=== PATIENT | female | born 1960 | race Caucasian/White ===

== ENCOUNTER 2017-07-27 22:28 | Observation (INO) | payer BC ==
[~2017-07-27] VITALS: Ht 152.4 cm; Wt 80.3 kg
--- NOTE | 2017-07-27 22:29 | NUR ---
PT RADHA ALS. TAKEN TO BED 11
[2017-07-27 22:35] VITALS: BP 185/77
--- NOTE | 2017-07-27 22:35 | NUR ---
56 Y/O F BIBA FROM HOME W/C/O HIGH BS,AND ALOC X 1 HR AGO. PER EMS BS 450 ON SCENE, NSS 150 ML BOLUS GIVEN BY EMS. HX. DM, ESRD ON HD, HTN.PT ON DIRECTOR OF SPECIAL EVENTS, ER MD AT BEDSIDE.
--- NOTE | 2017-07-27 23:14 | NUR ---
TRAV BARROS MADE AWARE OF PT'S BP READING OF 202/90.
[2017-07-27 23:24] LABS: HEMATOCRIT 34.4 % (36-48); HEMOGLOBIN 11.3 g/dL (12.0-16.0); RED BLOOD CELL COUNT(AUTO) 3.61 MIL/uL (4.20-5.40); WHITE BLOOD COUNT (AUTO) 11.2 K/uL (4.8-10.8)
[2017-07-27 23:25] LABS: LYMPHOCYTES % (AUTO) 12.4 % (20.5-51.1); MEAN CORPUSCULAR HEMOGLOBIN 31 pg (27-31); MEAN CORPUSCULAR HGB CONC 33 g/dL (33-37); MEAN CORPUSCULAR VOLUME 96 fL (80-94); NEUTROPHILS % (AUTO) 80.5 % (42.2-75.2); PLATELET COUNT (AUTO) 222 K/uL (140-450); RED CELL DISTRIBUTION WIDTH 15.1 % (11.6-13.7)
[2017-07-27 23:26] LABS: BASOPHILS # (AUTO) 0.1 K/uL (0.00-0.22); BASOPHILS % (AUTO) 1.2 % (0.0-2.0); EOSINOPHILS # (AUTO) 0.1 K/uL (0-0.4); EOSINOPHILS % (AUTO) 0.6 % (0.0-4.0); LYMPHOCYTES # (AUTO) 1.4 K/uL (2.5-16.5); MONOCYTES # (AUTO) 0.6 K/uL (0.8-1.0); MONOCYTES % (AUTO) 5.3 % (1.7-9.3)
[2017-07-27 23:31] LABS: POTASSIUM 4.4 mmol/L (3.5-5.1)
[2017-07-27 23:32] LABS: CARBON DIOXIDE 23.4 mmol/L (21-32)
[2017-07-27 23:37] LABS: TOTAL BILIRUBIN 0.3 mg/dL (0.0-1.0)
--- NOTE | 2017-07-27 23:37 | NUR ---
URINE COLLECTED AND SENT TO lab
[2017-07-27 23:47] LABS: ALBUMIN 3.7 g/dL (3.4-5.0)
[2017-07-27 23:52] LABS: CREATININE 5.4 mg/dL (0.6-1.3)
[2017-07-27] MEDS ORDERED: INSULIN REGULAR, HUMAN 100 UNIT/ML VIAL SUBQ ONE (23:55)
--- NOTE | 2017-07-28 00:08 | NUR ---
PT RESTING IN BED, FAMILY AT BEDSIDE. PT DENIES ANY CHEST PAIN OR SOB. WILL CONT TO MONITOR VS.
[2017-07-28 00:34] LABS: APPEARANCE,URINE CLOUDY (CLEAR)
[2017-07-28 00:35] LABS: COLOR,URINE YELLOW (YELLOW)
[2017-07-28 00:36] LABS: UGLUCOSE 2+ (NEGATIVE)
[2017-07-28 00:37] LABS: BILIRUBIN,URINE NEGATIVE (NEGATIVE); BLOOD, URINE TRACE (NEGATIVE); LEUKOCYTE ESTERASE ,URINE NEGATIVE (NEGATIVE); NITRITE, URINE NEGATIVE (NEGATIVE)
[2017-07-28 00:38] LABS: RBC,URINE TOO NUMEROUS TO COUN /HPF (0-5); WBC,URINE TOO MANY TO COUNT /HPF (0-5)
[2017-07-28] MEDS ORDERED: cloNIDine 0.1 MG TAB PO ONE ×2 (00:45→02:25)
[2017-07-28] MEDS ORDERED: LEVOFLOXACIN 500 MG/D5W PREMIX 100 ML IV ONE (01:05)
--- NOTE | 2017-07-28 01:26 | NUR ---
PT ASLEEP, ON MONITOR, NSR. PT DENIES ANY CHEST PAIN AT THE MOMENT.
[2017-07-28] MEDS ORDERED: DEXTROSE 50% 50 ML SYR IVP PRN (02:30)
[2017-07-28] MEDS ORDERED: ACETAMINOPHEN 325 MG TAB PO PRN (02:30)
[2017-07-28] MEDS ORDERED: ONDANSETRON 4 MG/2 ML VIAL IVP PRN (02:30)
[2017-07-28] MEDS ORDERED: HYDROcodone/APAP 5/325 MG 1 TAB TAB PO PRN (02:30)
--- NOTE | 2017-07-28 02:33 | NUR ---
PT RESTING IN BED, ON PROTECTOR PLATE ATTACHER, BP 199/75, PT DENIES CHEST PAIN. ER MD MADE AWARE.
[2017-07-28] MEDS ORDERED: hydrALAZINE 20 MG/ML VIAL IVP ONE (03:00)
--- NOTE | 2017-07-28 03:21 | NUR ---
CHARGE NURSE DAVID NOTIFIED OF DELAY ON PT'S TRANSFER D/T ELEVATED BP OF 189/68. CHARGE NURSE NOTIFIED OF MEDS GIVEN RECENTLY FOR HIGH BP.
--- NOTE | 2017-07-28 03:45 | NUR ---
Patient will be admitted to care of DR CLIFFORD. Admited to TELEMETRY. Will go to [id number]. Belongings list completed. Report to DEACON CODY AT BEDSIDE.
--- NOTE | 2017-07-28 03:50 | NUR ---
PT ARRIVED FROM ED VIA GURNEY, TRANSFERRED PT TO BED, SUPERVISOR OF RESEARCH PLACED, PT ORIENTED TO UNIT, NO DISTRESS NOTED, IV TO R AC 18 PATENT, PT ON ROOM AIR NO SOB, INITIAL ASSESSMENT DONE, ALL SAFETY PRECAUTION MET, WILL CONTINUE TO MONITOR.
[2017-07-28 04:10] VITALS: BP 180/70
--- NOTE | 2017-07-28 05:10 | NUR ---
PT SLEEPING, NO DISTRESS NOTED, CALL LIGHT WITHIN REACH WILL CONTINUE TO MONITOR.
[2017-07-28] MEDS: BLOOD GLUCOSE MONITORING 1 DEV DEV FS SCH ×4 (06:22→21:39)
[2017-07-28] MEDS: INSULIN LISPRO SLIDING SCALE 100 UNITS/ML VIAL SUBQ PRN ×2 (06:25→21:45)
--- NOTE | 2017-07-28 06:25 | NUR ---
DUE MEDICATION GIVEN, PT TOLERATED WELL, NO DISTRESS NOTED, CALL LIGHT WITHIN REACH, WILL CONTINUE TO MONITOR.
--- NOTE | 2017-07-28 07:31 | NUR ---
ENDORSED PT TO DAY SHIFT NURSE KY RN, PT STABLE, NO DISTRESS NOTED, CALL LIGHT WITHIN REACH.
--- NOTE | 2017-07-28 07:32 | NUR ---
RECEIVED REPORT FROM NAVAL ARCHITECT SPECIALIST NURSE AT BEDSIDE FOR CONTINUITY OF CARE. PATIENT ALERT AND AWAKE. UPDATED BOARD. RESPIRATIONS EVEN AND UNLABORED ON ROOM AIR. PATIENT DENIES PAIN AT THIS TIME. IV ON L AC 18G SL, IV INTACT, ASYMPTOMATIC, AND PATENT. SKIN INTACT. PATIENT CAN VERBALIZE REQUESTS. ALL NEEDS MET AT THIS TIME, SAFETY PRECAUTIONS IN PLACE, BED ON LOWEST SETTING, BED ALARM ON, CALL LIGHT WITHIN REACH. WILL CONTINUE TO MONITOR PATIENT.
[2017-07-28 08:00] VITALS: BP 170/62
[2017-07-28 08:02] LABS: CREATINE KINASE MB 1.9 ng/mL (0-3.6)
--- NOTE | 2017-07-28 09:11 | NUR ---
PATIENT HAS BEEN SCREENED AND CATEGORIZED HIGH NUTRITION RISK. PATIENT WILL BE SEEN WITHIN 1-2 DAYS OF ADMISSION. 07/28/18-07/29/[address]
--- NOTE | 2017-07-28 09:45 | NUR ---
ROCEPHIN IVPB STARTED. PATIENT RESTING IN BED. NO SIGNS OF DISTRESS. SAFETY PRECAUTION IN PLACE, CALL LIGHT WITHIN REACH. WILL CONTINUE TO MONITOR PATIENT.
--- NOTE | 2017-07-28 10:15 | NUR ---
ROCEPHIN IVPB 50ML FINISHED. NO REACTION OR SIGNS OF DISTRESS FROM PATIENT. PATIENT RESTING IN BED. NSAFETY PRECAUTION IN PLACE, CALL LIGHT WITHIN REACH. WILL CONTINUE TO MONITOR PATIENT.
--- NOTE | 2017-07-28 11:05 | NUR ---
PATIENT RESTING IN BED, DAUGHTER ELISEO AT BEDSIDE. SAFETY PRECAUTION IN PLACE, CALL LIGHT WITHIN REACH. WILL CONTINUE TO MONITOR PATIENT.
[2017-07-28 12:00] VITALS: BP 171/68
--- NOTE | 2017-07-28 13:25 | NUR ---
DR. FAULKNER CALLED. UPDATED HIM ABOUT PATIENT'S STATUS. HE STATED HE WILL PUT IN THE ORDER FOR HEMODIALYSIS WHEN HE COMES TO THE FLOOR AND TO CALL TANJA PEREZ THE DIALYSIS NURSE.
--- NOTE | 2017-07-28 13:38 | NUR ---
TANJA PEREZ, ANCHOR TACKER CALLED FOR HEMODIALYSIS FOR PATIENT. PATIENT IN STABLE CONDITION. RESTING. DAUGHTER AT BEDSIDE. NO SIGNS OF DISTRESS NOTED. SAFETY PRECAUTION IN PLACE, CALL LIGHT WITHIN REACH. WILL CONTINUE TO MONITOR PATIENT.
--- NOTE | 2017-07-28 14:42 | NUR ---
Clinical review faxed to [facility] at [phone]
[2017-07-28 16:00] VITALS: BP 183/69
--- NOTE | 2017-07-28 16:05 | NUR ---
DIALYSIS NURSE ON THE FLOOR. WILL BEGIN DIALYSIS. PATIENT SHOWS NO SIGNS OF DISTRESS. SON AT BEDSIDE. PATIENT DENIES PAIN. SAFETY PRECAUTIONS IN PLACE, CALL LIGHT WITHIN REACH. WILL CONTINUE TO MONITOR PATIENT.
[2017-07-28 16:35] LABS: CREATINE KINASE MB 1.9 ng/mL (0-3.6)
[2017-07-28] MEDS ORDERED: LISI-420 PO (16:58)
[2017-07-28] MEDS ORDERED: HYDR100T79 PO (16:58)
[2017-07-28] MEDS ORDERED: FAMO-90 PO (16:58)
[2017-07-28] MEDS ORDERED: AMLO10TA PO (16:58)
[2017-07-28] MEDS ORDERED: GABA100C PO (16:58)
[2017-07-28] MEDS ORDERED: ACET-2619 PO (16:58)
[2017-07-28] MEDS ORDERED: PRED10TA5 PO (16:58)
[2017-07-28] MEDS ORDERED: ACET-2869 PO (16:58)
[2017-07-28] MEDS ORDERED: INSU100S22 SUBQ (16:58)
--- NOTE | 2017-07-28 17:05 | NUR ---
DR. CARDONA CALLED BACK, PATIENT' TROPONIN LEVELS READ TO HIM. HE SAID THAT AFTER HEMODIALYSIS, GIVE PATIENT BP MEDICATIONS ORDERED, IF 2 HOURS AFTER, BP IS STILL GREATER THAN 140, CALL HIM AGAIN. PATIENT CURRENTLY GETTING HEMODIALYSIS, TOLERATING IT WELL. SON AT BEDSIDE. SAFETY PRECAUTIONS IN PLACE, CALL LIGHT WITHIN REACH. WILL CONTINUE TO MONITOR PATIENT.
--- NOTE | 2017-07-28 19:10 | NUR ---
KEENA, SENIOR ADMINISTRATIVE ASSISTANT, FROM THE PATIENT'S INSURANCE CALLED. WANTED TO SEE THE CONDITION OF THE PATIENT AND TRANSFER HER TO A CONTRACTED HOSPITAL. PATIENT JUST FINISHED RECEIVING DIALYSIS, 3L REMOVED. PATIENT'S SON AT BEDSIDE. NO SIGNS OF DISTRESS NOTED. PATIENT DENIES PAIN. SAFETY PRECAUTIONS IN PLACE, CALL LIGHT WITHIN REACH. WILL CONTINUE TO MONITOR PATIENT.
--- NOTE | 2017-07-28 19:15 | NUR ---
DR. CLIFFORD CALLED, STATED THAT PATIENT'S INSURANCE'S BASS FISHER CALLED HIM. HE SAID THAT PATIENT CAN BE DISCHARGED, AND HAVE HER HOME MEDICATIONS CONTINUED.
--- NOTE | 2017-07-28 19:35 | NUR ---
REPORT GIVEN AT BEDSIDE FOR CONTINUITY OF CARE TO FARM CROPS TEACHER NURSE. WILL ENDORSE TRANSFER INFORMATION. PATIENT IN STABLE CONDITION.
--- NOTE | 2017-07-28 19:36 | NUR ---
RECEIVED REPORT FROM DAY NURSE LAILA RN. PT IN STABLE CONDITION, NO S/S OF DISTRESS NOTED. RR EVEN/UNLABORED. PT ON RA. 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 SKIN INTACT, WARM AND DRY TO TOUCH. IV TO R AC 18G PATENT AND INTACT SALINE LOCK. BOWEL SOUNDS PRESENT AND ACTIVE. INITIAL ASSESSMENT COMPLETED, PLAN OF CARE DISCUSSED WITH PT AND FAMILY AT THE BEDSIDE, VERBALIZED UNDERSTANDING. ALL SAFETY PRECAUTIONS MET, CALL LIGHT WITHIN REACH, BOARD UPDATED,WILL CONTINUE TO MONITOR.
--- NOTE | 2017-07-28 19:37 | NUR ---
DAY NURSE [place] RECEIVED CALL FROM DR. CLIFFORD AND STATED THAT DR. CLIFFORD SAID TO TRANSFER PT AND PUT IN ORDERS FOR TRANSFER. I WILL CALL DR. CLIFFORD TO CLARIFY ORDERS.
--- NOTE | 2017-07-28 19:50 | NUR ---
DR. CLIFFORD PAGEMarty. CHARGE NURSE DAVID WORTHY MADE AWARE OF ORDERS FOR PTS TRANSFER, SAID TO WAIT TO TALK TO DR. CLIFFORD
[2017-07-28 20:00] VITALS: BP 189/82
--- NOTE | 2017-07-28 20:05 | NUR ---
DR. CLIFFORD PAGED BACK, HE STATED HE TALKED TO SAMPLE GRINDER FROM INSURANCE FOR PT TRANSFER AND GAVE ME THE NUMBER TO SPEAK WITH HER. WILL PAGE SERVICING MANAGER
--- NOTE | 2017-07-28 20:07 | NUR ---
PAGED THE DIRECTOR COUNSELING BUREAU, SIDDHARTHA, PHONE NUMBER [phone]. SHE STATED, "I POSSIBLY HAVE A BED AVAILABLE AT [facility], I AM WAITING FOR A CALL BACK FROM THE FACILITY AND I WILL CALL BACK WHEN I HEAR FROM THE." GAVE SIDDHARTHA THE UNITS PHONE NUMBER FOR CALL BACK
--- NOTE | 2017-07-28 20:10 | NUR ---
PAGED MARKET RESEARCH SENIOR PROJECT MANAGER MARIAA FROM [place] TO MAKE AWARE OF SITUATION. SHE EXPLAINED TO ME THE PROTOCOL FOR TRANSFERRING PTS AND STATED SHE WILL ALSO GIVE SIDDHARTHA THE MARKET RESEARCH SENIOR PROJECT MANAGER A PHONE CALL.
--- NOTE | 2017-07-28 20:30 | NUR ---
PT B/P ELEVATED 192/82 PULSE IS 69, NO S/S OF DISTRESS NOTED. PT DENIES ANY PAIN. DR. RAMIREZ MADE AWARE
[2017-07-28] MEDS: CARVEDILOL 6.25 MG TAB PO SCH (20:38)
--- NOTE | 2017-07-28 20:45 | NUR ---
DR. RAMIREZ IN TO SEE PT
--- NOTE | 2017-07-28 20:50 | NUR ---
CALLED CT TO ASK FOR CD OF IMAGES THAT DR. CLIFFORD ORDERED. CT STATES THEY DO NOT HAVE ANY ORDERS ON THEIR END BUT IT SHOWS ON EMR
--- NOTE | 2017-07-28 21:00 | NUR ---
DR. RAMIREZ PUT IN NEW ORDERS FOR B/P MEDICATION. WILL CARRY OUT ORDERS AND PAGE PHARMACY TO VERIFY
--- NOTE | 2017-07-28 21:00 | NUR ---
DR. CARDONA STATES HE WANTED NORVAS 10MG TO BE GIVEN A ONE TIME DOSE NOW, WILL GIVE
--- NOTE | 2017-07-28 21:06 | NUR ---
2031 RECEIVED CALL FROM PUMA SUBRAMANIAN NURSE THAT SHE RECEIVED CALL FROM MELINA JEFFERY REGARDING TRANSFER OF PT TO A CONTRACTED FACILITY AND THAT DR CLIFFORD HAS GIVEN ORDER FOR TRANSPORT TO CONTRACTED FACILITY. 2055 CALL PLACED TO [phone] AND SPOKE WITH SIDDHARTHA SUMMERS CM REGARDING PENDING TRANSFER. PER SIDDHARTHA AT THIS TIME A BED HAS NOT BEEN CONFIRMED AT A CONTRACTED FACILITY AND SHE WILL CALL NURSING UNIT WITH INFORMATION WHEN BED BECOMES AVAILABLE. ASKED FOR AUTH# FOR AMBULANCE TRANSPORT AND SHE STATED THAT WHEN A BED IS AVAILABLE SHE WILL SET UP THE TRANSPORT. CALLED NURSING UNIT AND SPOKE WITH PUMA SUBRAMANIAN NURSE AND INFORMED HER THAT WHEN A CONTRACTED HOSPITAL BED IS AVAILABLE SIDDHARTHA WILL CONTACT THE NURSING UNIT WITH THE FACILITY, BED NUMBER, AND PHONE NUMBER TO CALL WITH REPORT AND THAT PER SIDDHARTHA SHE WILL SET UP THE AMBULANCE TRANSPORT.
[2017-07-28] MEDS ORDERED: amLODIPine 5 MG TAB PO SCH (21:10)
[2017-07-28] MEDS ORDERED: cloNIDine 0.1 MG TAB PO PRN (21:10)
--- NOTE | 2017-07-28 21:20 | NUR ---
DR. CARDONA PUT ORDER IN EMAR WILL CALL PHARMACY TO VERIFY MED
--- NOTE | 2017-07-28 21:22 | NUR ---
PAGED PHARMACY TO VERIFY MED STATED THEY WILL VERIFY IT
[2017-07-29] VITALS (8 sets, daily range): BP systolic 122–176; BP diastolic 52–80
--- NOTE | 2017-07-29 00:30 | NUR ---
PAGED CT AGAIN FOR CD BUT DAPHNE STATES SHE STILL DOES NOT SEE ORDERS
--- NOTE | 2017-07-29 01:06 | NUR ---
CHECKED PTS B/P IT IS 179/70 PULSE 62 NO S/S OF DISTRESS PT RESTING COMFORTABLY IN BED. PT DENIES PAIN. CATAPRES GIVEN PRN ORDERED FOR SYSTOLIC OVER 150
--- NOTE | 2017-07-29 01:30 | NUR ---
CD IMAGE FOUND IN NURSING STATION, WAS BROUGHT OVER EARLIER
--- NOTE | 2017-07-29 03:15 | NUR ---
PAGED DR. CARDONA ABOUT PTS B/P 170/60 PULSE 61, NEW ORDERS IN PLACE
--- NOTE | 2017-07-29 03:30 | NUR ---
PT SOAKED BED WITH URINE, ALL BEDDING CHANGED AND PT CLEANED
[2017-07-29] MEDS: hydrALAZINE 20 MG/ML VIAL IVP PRN ×3 (03:32→16:52)
[2017-07-29 05:50] LABS: BASOPHILS # (AUTO) 0.2 K/uL (0.00-0.22); BASOPHILS % (AUTO) 2.1 % (0.0-2.0); EOSINOPHILS # (AUTO) 0.3 K/uL (0-0.4); EOSINOPHILS % (AUTO) 4.2 % (0.0-4.0); HEMATOCRIT 33.9 % (36-48); HEMOGLOBIN 10.8 g/dL (12.0-16.0); LYMPHOCYTES % (AUTO) 26.9 % (20.5-51.1); MEAN CORPUSCULAR HEMOGLOBIN 31 pg (27-31); MEAN CORPUSCULAR HGB CONC 32 g/dL (33-37); MEAN CORPUSCULAR VOLUME 96 fL (80-94); MONOCYTES # (AUTO) 0.7 K/uL (0.8-1.0); MONOCYTES % (AUTO) 9.7 % (1.7-9.3); NEUTROPHILS # (AUTO) 4.1 K/uL (1.8-7.7); NEUTROPHILS % (AUTO) 57.1 % (42.2-75.2); PLATELET COUNT (AUTO) 204 K/uL (140-450); RED BLOOD CELL COUNT(AUTO) 3.53 MIL/uL (4.20-5.40); RED CELL DISTRIBUTION WIDTH 14.9 % (11.6-13.7); WHITE BLOOD COUNT (AUTO) 7.3 K/uL (4.8-10.8)
[2017-07-29 06:28] LABS: ALBUMIN 3.1 g/dL (3.4-5.0); ANION GAP 12.2 (8-16); CARBON DIOXIDE 28.2 mmol/L (21-32); CREATININE 3.7 mg/dL (0.6-1.3); MAGNESIUM 1.6 mg/dL (1.8-2.4); POTASSIUM 3.4 mmol/L (3.5-5.1); TOTAL BILIRUBIN 0.2 mg/dL (0.0-1.0)
[2017-07-29] MEDS: BLOOD GLUCOSE MONITORING 1 DEV DEV FS SCH ×3 (06:30→16:33)
--- NOTE | 2017-07-29 07:30 | NUR ---
GAVE REPORT TO DAY NURSE, PT IN STABLE CONDITION.
[2017-07-29 08:14] LABS: HEPATITIS A ANTIBODY IGM Negative (Negative); HEPATITIS B CORE AB TOTAL Negative (Negative); HEPATITIS B SURFACE ANTIBODY Non Reactive (.); HEPATITIS B SURFACE ANTIGEN Negative (Negative)
[2017-07-29] MEDS ORDERED: amLODIPine 5 MG TAB PO SCH ×2 (09:00)
[2017-07-29] MEDS: CARVEDILOL 6.25 MG TAB PO SCH (09:10)
[2017-07-29] MEDS ORDERED: HUM SUBQ (10:10)
--- NOTE | 2017-07-29 10:29 | NUR ---
NEW IV 20G RIGHT FOREARM SL FOR CT WITH IV CONTRAST, PATIENT LEFT TO PROCEDURE, IN STABLE CONDITION
--- NOTE | 2017-07-29 10:44 | NUR ---
PATIENT'S IV FILTRATED AND WAS DISCONTINUED WITH CANNULA INTACT. IV WITHELD. NEW IV 22G RIGHT WRIST WITH IV ABX INFUSING WELL. ALL NEEDS MET AT THIS TIME.
--- NOTE | 2017-07-29 11:18 | NUR ---
FAXED CONCURRENT REVIEW TO MELINA [phone] PHONE TOMAS [phone]. CALLED TOMAS ABOUT TRANSFER TO CONTRACTED FACILITY. I TOLD HER I HAD AN ORDER TO DISCHARGE PATIENT HOME IF CLEARED BY CARDIOLOGY.
[2017-07-29] MEDS ORDERED: CARV3.12 PO (11:44)
--- NOTE | 2017-07-29 11:45 | NUR ---
DR FAULKNER ORDERED TO GIVE PATIENT COREG 3.125 PO BID A NEW ORDER FOR DISCHARGED. WILL PLACE ORDERS.
[2017-07-29] MEDS ORDERED: LISINOPRIL 10 MG TAB PO SCH (12:00)
--- NOTE | 2017-07-29 15:13 | NUR ---
07/29/2017 RD INITIAL ASSESSMENT COMPLETED PLEASE REFER TO NUTRITION ASSESSMENT UNDER CARE ACTIVITY FOR ESTIMATED NUTRITIONAL NEEDS. CONTINUE CURRENT DIET ORDERED PT IS CONSUMING AN ESTIMATED 938 KCALS AND 34 GM PRO TO MEET 58% ESTIMATED ENERGY AND 52% ESTIMATED PROTEIN NEEDS PER DAYINADEQUATE, ENCOURAGED INCREASED INTAKE RD TO FOLLOW-UP IN 3-5 DAYS PATIENT IS MODERATE RISK. LETTY HAGER, RD
--- NOTE | 2017-07-29 16:12 | NUR ---
RECEIVED CALL FROM DR. CLIFFORD TO PLACE IN ORDERS FOR HOME HEALTH; HOME SAFETY AND PHYSICAL THERAPY.
--- NOTE | 2017-07-29 16:28 | NUR ---
RECEIVED AN ORDER FOR HOME HEALTH FOR SAFETY EVAL AND P.T. I CALLED TOMAS FROM [facility] AND SHE SAID SHE ALREADY SET UP THE HOME HEALTH WITH [facility]. PHONE [phone]. I ALSO INFORMED HER THAT DR. Breanna CARDONA WAS COMING TO SEE PATIENT PRIOR TO DISCHARGE.
[2017-07-29] MEDS: INSULIN LISPRO SLIDING SCALE 100 UNITS/ML VIAL SUBQ PRN (16:43)
--- NOTE | 2017-07-29 16:57 | NUR ---
BP IS 168/67 HR 72, PATIENT WAS GIVEN HYDRALAZINE 10 MG IVP FOR SBP>150. PATIENT DENIES CHEST PAIN, HEADACHE, AND SOB ALL NEEDS MET AT THIS TIME.
--- NOTE | 2017-07-29 18:06 | NUR ---
PATIENT'S BP IS 153/62 HR 72. PATIENT DENIES PAIN AND SOB. ALL NEEDS MET AT THIS TIME.
--- NOTE | 2017-07-29 18:17 | NUR ---
ALISA GOMES AT BEDSIDE AND NOTIFIED OF PATIENT'S HOME HEALTH, [facility] PHONE [phone]. DR Trevor CARDONA WAS PAGED AND WILL COME SEE PATIENT IN 30 MIN.
--- NOTE | 2017-07-29 19:25 | NUR ---
Trevor SINGLETARY CAME TO SEE PATIENT AND OKAYED TO BE DISCHARGED, PATIENT IS READY TO BE DISCHARGED, PAPERWORK WAS SIGNED BY DAUGHTER ELISEO, ALL QUESTIONS ANSWERED, PATIENT AND DAUGHTER ELISEO VERBALIZED UNDERSTANDING OF CONTINUITY OF CARE. ALL BELONGINGS AND PRESCRIPTIONS WITH PATIENT'S FAMILY. IV WAS DISCONTINUED WITH CANNULA INTACT. WRISTBANDS REMOVED, TELE BOX REMOVED. PATIENT IS GETTING DRESSED.
[2017-07-30] MEDS ORDERED: LISINOPRIL 10 MG TAB PO SCH (09:00)
== END 2017-07-29 19:45 | disposition home or self-care (01) ==
LOC: MED 22:28 → MTU 07-28 02:35
PROVIDERS: ADMIT Hospitalist; ATTEND Hospitalist
DX: R40.4 Transient alteration of awareness (principal); E11.65 Type 2 diabetes mellitus with hyperglycemia; E11.42 Type 2 diabetes mellitus with diabetic polyneuropathy; E11.319 Type 2 diabetes mellitus with unspecified diabetic retinopathy without macular edema; E11.22 Type 2 diabetes mellitus with diabetic chronic kidney disease; E11.21 Type 2 diabetes mellitus with diabetic nephropathy; I12.0 Hypertensive chronic kidney disease with stage 5 chronic kidney disease or end stage renal disease; N18.6 End stage renal disease; E78.5 Hyperlipidemia, unspecified; I42.9 Cardiomyopathy, unspecified; R79.89 Other specified abnormal findings of blood chemistry; Z83.3 Family history of diabetes mellitus; Z91.14 Patient's other noncompliance with medication regimen; Z91.19 Patient's noncompliance with other medical treatment and regimen; Z99.2 Dependence on renal dialysis
CPT/HCPCS: 36415; 71045; 80053; 81001; 82550; 82553; 82948; 83605; 83735; 83880; 84484; 85025; 85610; 85730; 86704; 86706; 86708; 86709; 86803; 87040; 87081; 87086; 87186; 87340; 93005; 96365; 96367; 96372; 96375; 96376; 99285; C1758; G0378; J0360; J0696; J1644; J1815; J1956; J7030; J7060; Q0092; 90935

== ENCOUNTER 2020-08-30 21:03 | Inpatient (IN) | payer BC, SELFPAY ==
[~2020-08-30] VITALS: Ht 152.4 cm; Wt 71.2 kg
[2020-08-30] MEDS: SODIUM BICARBONATE 8.4% 100 MEQ in NACL 0.45% 1,000 ML IV SCH (00:05)
[~2020-08-30 21:03] MED LIST: ACET-2619 PO; AMLO10TA PO; CALCIUM CHLORIDE 10% 100 MG/ML SYR IVP ONE; CARV3.12 PO; EPINEPHrine PFS 0.1 MG/ML SYR IVP ONE; FAMO-90 PO; GABA100C PO; HUM SUBQ; HYDR-5122 PO; HYDR100T79 PO; INSU100S22 SUBQ; LISI-487 PO; PRED10TA5 PO; SODIUM BICARBONATE 8.4% PFS 50 MEQ/50 ML SYR IVP ONE
--- NOTE | 2020-08-30 21:03 | NUR ---
PATIENT 59 Y/O FEMALE BIBA FROM HOME WITH C/O FULL ARREST. PATIENT ARRIVED VIA EMS WITH AMBU BAG AND COMPRESSIONS BEING PERFORMED. PER REPORT FROM EMS PATIENT WAS FOUND UNRESPONSIVE AT HOME FOR A TOTAL OF 40 MIN. PER FAMILY PATIENT "USUALLY GETS DIALYSIS, BUT MISSED HER APPOINTMENT TODAY BECAUSE SHE DIDN'T FEEL GOOD." PER FAMILY PATIENT USUALLY HAS DIALYSIS M,W,F. PATIENT NOTED WITH SHUNT IN L LOWER FA. MEDHX: DM TYPE II, HTN, CVA WITH R SIDED WEAKNESS, RENAL FAILURE ALLERGIES: ATORVASTATIN
--- NOTE | 2020-08-30 21:03 | NUR ---
CODE INITIATED, SEE CODE BLUE RECORD FOR FURTHER DETAILS.
--- NOTE | 2020-08-30 21:03 | NUR ---
PT RADHA ALS FROM HOME. TAKEN TO BED #10
--- NOTE | 2020-08-30 21:05 | NUR ---
PATIENT INTUBATED @ 25CM @ THE TEETH. VENT SETTINGS: AC/VC , TV: 450, PEEP: 8, RR:20, FIO2 100%. OG TUBE PLACED. XRAY CALLED FOR PLACEMENT CONFIRMATION.
--- NOTE | 2020-08-30 21:07 | NUR ---
[facility] NUMBER [phone]
--- NOTE | 2020-08-30 21:11 | NUR ---
ROSC OBTAINED, HR 109
[2020-08-30] MEDS ORDERED: NOREPINEPHRINE 4 MG in DEXTROSE 5% 250 ML IV ONE (21:15)
--- NOTE | 2020-08-30 21:15 | NUR ---
LEVOPHED 4MG IN 250ML D5% INITIATED @ 4MCG/MIN. SEE IV SPREAD SHEET FOR VITAL SIGNS.
[2020-08-30 21:20] VITALS: BP 127/92
--- NOTE | 2020-08-30 21:20 | NUR ---
EKG PERFORMED AT BEDSIDE. EKG READS SINUS TACHYCARDIA @ 111
--- NOTE | 2020-08-30 21:20 | NUR ---
SPUTUM COLLECTED AND SENT TO LAB.
--- NOTE | 2020-08-30 21:30 | NUR ---
PT BIBA FULL ARREST. PT INTUBATED BY MD ARREOLA WITH 8.0 ETT AT 25 AT THE LIP. TUBE PLACEMENT CONFIRMED BY COLOR CHANGE AND BREATH SOUNDS. PLACED PT ON VENTILATOR WITH SETTINGS AC 20,450,+8,100%. WILL TOLERATE FIO2 AND PEEP TOLERATED. MD ARREOLA AWARE OF SETTINGS AND AGREES. VENT CONNECTED TO RED OUTLET ALARMS AUDIBLE. WILL CONTINUE TO MONITOR.
--- NOTE | 2020-08-30 21:30 | NUR ---
RT IN ROOM FOR ABG. PT IN PROCEDURE. RT WILL FOLLOW RIGHT AFTER PROCEDURE
--- NOTE | 2020-08-30 21:45 | NUR ---
BERTHA ARREOLA PLACING R FEMORAL CENTRAL LINE IN PATIENT VIA STERILE TECHNIQUE.
[2020-08-30 21:49] LABS: BASOPHILS % (AUTO) 0.3 % (0.0-2.0); EOSINOPHILS # (AUTO) 0.2 K/uL (0-0.4); HEMATOCRIT 32.5 % (36-48); HEMOGLOBIN 9.8 g/dL (12.0-16.0); LYMPHOCYTES # (AUTO) 6.5 K/uL (2.5-16.5); LYMPHOCYTES % (AUTO) 37.6 % (20.5-51.1); MEAN CORPUSCULAR HEMOGLOBIN 31 pg (27-31); MEAN CORPUSCULAR HGB CONC 30 g/dL (33-37); MEAN CORPUSCULAR VOLUME 103.8 fL (80-94); MONOCYTES # (AUTO) 0.4 K/uL (0.8-1.0); MONOCYTES % (AUTO) 2.5 % (1.7-9.3); NEUTROPHILS # (AUTO) 10.1 K/uL (1.8-7.7); NEUTROPHILS % (AUTO) 58.6 % (42.2-75.2); PLATELET COUNT (AUTO) 137 K/uL (140-450); RED BLOOD CELL COUNT(AUTO) 3.14 MIL/uL (4.20-5.40); RED CELL DISTRIBUTION WIDTH 18.3 % (11.6-13.7); WHITE BLOOD COUNT (AUTO) 17.2 K/uL (4.8-10.8)
[2020-08-30] MEDS ORDERED: PROPOFOL 1000 MG/100 ML PREMIX 100 ML IV ONE ×2 (21:52→21:55)
--- NOTE | 2020-08-30 21:55 | NUR ---
PROPOFOL 1000MG INITIATED @ 10MCG/KG/MIN. SEE IV SPREAD SHEET FOR VITAL SIGNS.
[2020-08-30 21:59] LABS: ALBUMIN 3.4 g/dL (3.4-5.0); ANION GAP 27.7 (8-16); CARBON DIOXIDE 19.3 mmol/L (21-32); TOTAL BILIRUBIN 0.3 mg/dL (0.0-1.0)
--- NOTE | 2020-08-30 22:00 | NUR ---
ABG PERFORMED BY RT @ BEDSIDE.
[2020-08-30 22:03] LABS: CREATININE 10.8 mg/dL (0.6-1.3)
--- NOTE | 2020-08-30 22:04 | NUR ---
ABG DONE WITH NO INCIDENT. RESULTS GIVEN TO MD ARREOLA. FIO2 DECREASED TO 80%. WILL CONTINUE TO MONITOR.
--- NOTE | 2020-08-30 22:05 | NUR ---
SARAH ANTIGEN SWAB COLLECTED VIA NARES AND GIVEN TO SCHOOL PSYCHOLOGY PROFESSOR.
[2020-08-30 22:09] LABS: THYROID STIMULATING HORMONE 1.33 uIU/mL (0.34-3.74)
[2020-08-30] MEDS ORDERED: cefTRIAXone 2,000 MG in DEXTROSE 5% 100 ML IV ONE (22:20)
[2020-08-30] MEDS ORDERED: SODIUM BICARBONATE 8.4% 100 MEQ in NACL 0.9% 1,000 ML IV SCH (22:20)
[2020-08-30] MEDS ORDERED: SODIUM POLYSTYRENE 15 GM/60 ML UDBTL PO ONE (22:20)
[2020-08-30] MEDS ORDERED: INSULIN REGULAR, HUMAN 100 UNIT/ML VIAL IVP ONE (22:20)
[2020-08-30] MEDS ORDERED: SODIUM BICARBONATE 8.4% PFS 50 MEQ/50 ML SYR IVP ONE ×2 (22:20→23:49)
[2020-08-30 22:21] LABS: PROTHROMBIN TIME 13.5 secs (10.8-13.4)
--- NOTE | 2020-08-30 22:35 | NUR ---
# 16 FR [place] catheter with 10 ml utilizing sterile technique. Immediate return of 50 ml YELLOW urine noted. Bedside drainage bag placed below level of bladder. Urine sample collected and sent to lab. Pt tolerated procedure WELL.
--- NOTE | 2020-08-30 22:35 | NUR ---
OG TUBE PLACED, XRAY CALLED FOR CONFIRMATION OF PLACEMENT. Addendum: 08/31/20 at 0730 by [email or web address] OG TUBE INSERTED 10CM FURTHER.
[2020-08-30] MEDS ORDERED: cefTRIAXone 2,000 MG VIAL ONE (22:54)
[2020-08-30] MEDS ORDERED: ONDANSETRON 4 MG/2 ML VIAL IVP PRN (23:00)
[2020-08-30] MEDS ORDERED: DEXTROSE 50% 50 ML SYR IVP PRN (23:00)
--- NOTE | 2020-08-30 23:17 | NUR ---
PT TAKEN TO CT SCAN
[2020-08-30 23:21] LABS: APPEARANCE,URINE CLOUDY (CLEAR); BILIRUBIN,URINE NEGATIVE (NEGATIVE); BLOOD, URINE 2+ (NEGATIVE); COLOR,URINE YELLOW (YELLOW); LEUKOCYTE ESTERASE ,URINE 2+ (NEGATIVE); NITRITE, URINE NEGATIVE (NEGATIVE); UGLUCOSE TRACE (NEGATIVE)
--- NOTE | 2020-08-30 23:25 | NUR ---
PATIENT TAKEN TO CT/XRAY VIA GURNEY. RT AND PRIMARY RN WITH PATIENT DURING TRANSFER.
[2020-08-30 23:33] LABS: RBC,URINE 0-5 /HPF (0-5); WBC,URINE TOO MANY TO COUNT /HPF (0-5)
--- NOTE | 2020-08-30 23:33 | NUR ---
PT BACK FROM CT SCAN
[2020-08-30 23:43] VITALS: BP 173/73
--- NOTE | 2020-08-30 23:43 | NUR ---
PT TAKEN TO CT ON 100% FIO2 AND BACK TO ER WITH NO INCIDENT. PT BACK ON VENTILATOR AND TOLERATING WELL.
[2020-08-30 23:53] LABS: BARBITURATE, URINE NEGATIVE ng/ml (NEG <=200); BENZODIAZEPINE, URINE NEGATIVE ng/mL (NEG <=200); CANNABINOID, URINE NEGATIVE ng/mL (NEG <=50); COCAINE, URINE NEGATIVE ng/mL (NEG <=300); OPIATE, URINE NEGATIVE ng/mL (NEG <=2000); PHENCYCLIDINE SCREEN,URINE NEGATIVE ng/mL (NEG <=25)
[2020-08-31] VITALS (46 sets, daily range): BP systolic 72–170; BP diastolic 3–101
--- NOTE | 2020-08-31 00:07 | NUR ---
FAMILY AT BEDSIDE WITH PATIENT VIA PERMISSION FROM [facility].
--- NOTE | 2020-08-31 00:20 | NUR ---
Patient will be admitted to care of . Admited to ICU. Will go to room 7. Belongings list completed. Report to DEBORAH WORTHY.
--- NOTE | 2020-08-31 00:20 | NUR ---
PT ADMITTED FROM ER. S/P CODE. PT ETT TO VENT FIO2-80%, TV- 450, RR- 20, PEEP-6. SEDATED. RESPIRATION EVEN AND UNLABORED. CHEST EXPANSION SYMMETRICAL, LUNG SOUNDS DIMINISHED. ORAL MUCOSA PINK AND MOIST. SKIN DRY, COOL, INTACT. BOYD CATH IN PLACE. PERIPHERAL ACCESS ON THE LEFT AC G20 AND RIGHT FEMORAL CENTRAL LINE INFUSING PROPOFOL @ 15MCG/KG/MIN, LEVOPHED @ 4MCG/MIN, SODIUM BICARB @ 40ML/HR. LEFT ARM AV SHUNT NOTED. LEFT ARM RESTRICTION. BED IN LOWEST POSITION, SIDE RAILS UP, SAFETY MEASURES IN PLACE, STANDARD PRECAUTION. WILL CONTINUE TO MONITOR.
--- NOTE | 2020-08-31 00:25 | NUR ---
PT CLEANED AND REPOSITIONED. PT HAD A LIQUID BROWN STOOL. WILL CONTINUE TO MONITOR.
--- NOTE | 2020-08-31 00:30 | NUR ---
PERIPHERAL ACCESS ON THE LEFT AC WAS REMOVED PER HD NURSE. NURSE AGRAWAL AT BEDSIDE AT THIS TIME AND WILL START DIALYSIS. WILL CONTINUE TO MONITOR PT.
--- NOTE | 2020-08-31 01:00 | NUR ---
SPOKE TO DR. UMAÑA AND UPDATED ABOUT PT'S CONDITION. MADE AWARE ABOUT LATEST LACTIC ACID RESULT FROM 9.1- 7.8. CHECK LAB AGAIN IN AM PER ORDER. MD ORDERED THE FOLLOWING: LEVOPHED 4MG WAS CHANGED TO 16MG, PROPOFOL PER PROTOCOL RASS -3, HEPARIN 5000 UNITS SUBQ BID. PROTONIX 40MG DAILY, FNS CONSULT, INSERT RECTAL TUBE. WILL MONITOR PT.
--- NOTE | 2020-08-31 01:01 | NUR ---
PEEP TITRATED FROM 8 cmH20 TO 6 cmH20. PT TOLERATING WELL. SPO2 98%. RN NOTIFIED. WILL CONTINUE TO MONITOR PT.
[2020-08-31] MEDS: INSULIN LISPRO SLIDING SCALE 100 UNITS/ML VIAL SUBQ PRN ×4 (01:35→17:36)
[2020-08-31] MEDS: BLOOD GLUCOSE MONITORING 1 DEV DEV FS SCH ×5 (01:35→23:56)
[2020-08-31] MEDS ORDERED: NOREPINEPHRINE 16 MG in DEXTROSE 5% 250 ML IV PRN (01:50)
[2020-08-31] MEDS ORDERED: NOREPINEPHRINE 4 MG/4 ML VIAL IV ONE (02:16)
--- NOTE | 2020-08-31 02:30 | NUR ---
DIALYSIS STILL ON GOING. PT ON BP SUPPORT. SEDATED RASS -3. WILL MONITOR.
--- NOTE | 2020-08-31 03:40 | NUR ---
DIALYSIS COMPLETED AT THIS TIME WITH 2L OUTPUT PER HD NURSE. WILL CONTINUE TO MONITOR.
[2020-08-31] MEDS ORDERED: PIPERACILLIN/TAZOBACTAM 2.25 GM VIAL IV ONE (04:25)
[2020-08-31] MEDS: PIPERACILLIN/TAZOBACTAM 2.25 GM in DEXTROSE 5% 50 ML IV SCH ×3 (04:39→20:12)
--- NOTE | 2020-08-31 05:00 | NUR ---
PT HAD A BOWEL MOVEMENT. PT CLEANED, CARMELO CARE, ORAL CARE BOYD CARE. TURNED AND REPOSITIONED PT. RECTAL TUBE INSERTED AT THIS TIME. PT TOLERATED PROCEDURE WELL. WILL CONTINUE TO MONITOR.
[2020-08-31 05:41] LABS: BASOPHILS % (AUTO) 0.2 % (0.0-2.0); EOSINOPHILS % (AUTO) 0.1 % (0.0-4.0); HEMOGLOBIN 10.6 g/dL (12.0-16.0); LYMPHOCYTES # (AUTO) 0.4 K/uL (2.5-16.5); LYMPHOCYTES % (AUTO) 1.9 % (20.5-51.1); MEAN CORPUSCULAR HEMOGLOBIN 31 pg (27-31); MEAN CORPUSCULAR HGB CONC 32 g/dL (33-37); MEAN CORPUSCULAR VOLUME 96.4 fL (80-94); MONOCYTES % (AUTO) 5.1 % (1.7-9.3); NEUTROPHILS % (AUTO) 92.7 % (42.2-75.2); PLATELET COUNT (AUTO) 186 K/uL (140-450); RED BLOOD CELL COUNT(AUTO) 3.42 MIL/uL (4.20-5.40); RED CELL DISTRIBUTION WIDTH 17.6 % (11.6-13.7); WHITE BLOOD COUNT (AUTO) 19.4 K/uL (4.8-10.8)
[2020-08-31] MEDS: ALBUMIN HUMAN 25% 50 ML IV SCH ×3 (05:49→21:26)
[2020-08-31 06:03] LABS: CREATINE KINASE MB 51.1 ng/mL (0-3.6)
[2020-08-31 06:18] LABS: ALBUMIN 3.9 g/dL (3.4-5.0); ANION GAP 22.3 (8-16); CARBON DIOXIDE 26.1 mmol/L (21-32); PHOSPHORUS 2.6 mg/dL (2.5-4.9); POTASSIUM 3.4 mmol/L (3.5-5.1); TOTAL BILIRUBIN 0.5 mg/dL (0.0-1.0)
[2020-08-31 06:20] LABS: CREATININE 7.5 mg/dL (0.6-1.3)
--- NOTE | 2020-08-31 06:31 | NUR ---
PAGED DR. CAVAZOS FOR A CRITICAL LAB, TROPONIN 14.849, LACTIC 6.8, CKMB- 51.1, CKI- 1173. AWAITING FOR MD'S CALL.
--- NOTE | 2020-08-31 06:45 | NUR ---
CALLED SON ACE AND UPDATED ABOUT PT'S CONDITION. QUESTIONS ANSWERED.
--- NOTE | 2020-08-31 07:03 | NUR ---
PAGED DR. CAVAZOS AGAIN AND THE COATER CARBON PAPER STATED IT IS A CHANGE OF SHIFT ALREADY, DR. GARCES TOOK OVER. AWAITING FOR DR. GARCES'S CALL.
--- NOTE | 2020-08-31 07:30 | NUR ---
RECEIVED PT FROM APPRENTICE PLUMBER RN. PT IS SEDATED RASS -3. PT IS ETT TO VENT ACVC 70% FIO2, VT 450, R 20, PEEP 6. PT IS SR ON THE MONITOR AT THIS TIME. PT HAS ACCESS AT R FEMORAL TRIPLE LUMEN. PT HAS L FA AV SHUNT FOR HEMODIALYSIS. PT IS ON PROPOFOL AT 15 MCG/KG/MIN, AND 1/2 NS WITH SODIUM BICARB RUNNING AT 40 ML/HR. LEVOPHED IS ON HOLD. BOYD CATHETER AND RECTAL TUBE ARE IN PLACE. WILL CONTINUE TO MONITOR, HOB AT 30 DEG.
[2020-08-31] MEDS ORDERED: hePARIN / DEXT 5% PREMIX 250 ML IV SCH (07:40)
[2020-08-31] MEDS ORDERED: HEPARIN PER PHARMACY MC PRN (07:40)
[2020-08-31] MEDS ORDERED: VANCOMYCIN PER PHARMACY MC PRN (07:40)
--- NOTE | 2020-08-31 08:41 | NUR ---
FNS CONSULT FOR TUBE FEEDING AND REFERRAL FOR INTUBATION WERE RECEIVED. PATIENT HAS BEEN SCREENED AND CATEGORIZED HIGH NUTRITION RISK. PATIENT WILL BE SEEN WITHIN 1-2 DAYS OF ADMISSION. 08/31/20-09/01/[address]
[2020-08-31] MEDS ORDERED: VANCOMYCIN HCL 1.25 GM in NACL 0.9% 250 ML IV SCH (09:00)
--- NOTE | 2020-08-31 09:05 | NUR ---
CALLED GREENHOUSE INSTRUCTOR TANJA TO MAKE HER AWARE OF PTS' ORDER FOR HD TODAY BY DR. Mario SAINI
[2020-08-31] MEDS: PANTOPRAZOLE 40 MG INJ VIAL IVP SCH (09:09)
[2020-08-31] MEDS: PROPOFOL 1000 MG/100 ML PREMIX 100 ML IV PRN ×2 (09:17→20:14)
[2020-08-31] MEDS: hePARIN / DEXT 5% PREMIX 250 ML IV SCH (09:26)
--- NOTE | 2020-08-31 10:00 | NUR ---
MEDICATIONS ADMINISTERED PER ORDER. RECTAL BAG WAS LEAKING, ADDED MORE WATER TO BALLOON IN RECTAL TUBE. PT CLEANED, REPOSITIONED. VAP ORAL CARE PROVIDED. CHG BATH, BOYD CARE PROVIDED.
--- NOTE | 2020-08-31 10:45 | NUR ---
ATTEMPTED TO PAGE DR. GARCES REGARDING LACTIC ACID 7.7. UNABLE TO GET THROUGH ON PAGER LINE.
--- NOTE | 2020-08-31 10:50 | NUR ---
DR. GARCES SEEING PT
--- NOTE | 2020-08-31 11:28 | NUR ---
SOCIAL WORK NOTE: Patient's Orientation Unable To Assess Information Provided By ELISEO SUAREZ - DAUGHTER Comments SW WAS UNABLE TO MEET PATIENT AT BEDSIDE. SW COMPLETED ASSESSMENT WITH DAUGHTER AFTER LEAVING FOR PATIENT'S SON. Vessel Specialist, Realtionship and Phone Number ACE LINDQUIST SON [phone] ELISEO SUAREZ DAUGHTER [phone] Healthcare Power of Rivet Flunky No Does Patient Have a POLST No Identifying Problems No Social Work Triggers Is A Social Work Consult Needed No Mandate Report Filed No Explanation Of Identifying Problems PATIENT IS A 59-YEAR-OLD FEMALE ADMITTED FOR CARDIAC ARREST. PATIENT HAS PMHX OF DIABETES. Admitted From Home Pre-Admission Level Of Functioning Status Independent With DME Level Of Functioning Comment PER DAUGHTER, PATIENT IS INDEPENDENT WITH ADLS WITH USE OF WALKER AND SHOWERCHAIR. Prior Resources/Services Used In Last 12 Months No Prior Resources Used Prior DME Shower Chair/Tub Bench Walker Wheelchair Dialysis Comments N/A Living Situation Apartment Lives With Family Patient Had Caregiver No Home Support No Caregiver Issues Financial Issues No Known Financial Issue Referral To The Financial Counselor Needed No Factors/Needs No D/C Needs Identified Pt/Rep Participated In Discharge Plan Yes Patient/Family Agress With Discharge Plan Yes Discharge Plan Comments TENTATIVE DISCHARGE PLAN IS FOR PATIENT TO RETURN HOME. DC Plan Status Initiated
[2020-08-31] MEDS: MIDODRINE 5 MG TAB NG SCH ×4 (12:00→23:32)
--- NOTE | 2020-08-31 12:45 | NUR ---
MEDICATIONS ADMINISTERED PER ORDER. VAP ORAL CARE COMPLETED. PT REPOSITIONED. Addendum: 08/31/20 at 1410 by Cele Sen RN RN BS 200, 2 UNITS OF INSULIN ADMINISTERED FOR COVERAGE
--- NOTE | 2020-08-31 14:09 | NUR ---
SPOKE TO DR. Breanna CARDONA REGARDING ELEVATED TROPONIN, RECEIVED ORDER TO START COREG 6.25 MG BID.
--- NOTE | 2020-08-31 14:56 | NUR ---
ECHOCARDIOGRAM FINISHED. STAFF ASSISTANT LEAVING BEDSIDE.
--- NOTE | 2020-08-31 15:04 | NUR ---
08/31/20 RD INITIAL ASSESSMENT COMPLETED PLEASE REFER TO NUTRITION ASSESSMENT UNDER CARE ACTIVITY FOR ESTIMATED NUTRITIONAL NEEDS. 1. RECOMMENDED NEPRO 1.8 @ 30 ML/HR -PROVIDES 1296 KCAL AND 58 GM OF PROTEIN, MEETS 100% KCAL AND >80% PROTEIN NEEDS. 2. RECOMMEND FLUSH 130 ML Q4H 3. IF EXTUBATED CONSIDER SWALLOW EVALUATION 4. RD TO FOLLOW-UP 2-3 DAYS, HIGH RISK LINDA FAITH RD
--- NOTE | 2020-08-31 15:31 | NUR ---
SPOKE TO ROPER OPERATOR AGRAWAL REGARDING CLARIFICATION OF DR. SAINI'S DIALYSIS ORDER FOR TODAY. DR. SAINI SAID YES TO DIALYSIS HAPPENING TODAY, BUT ADVISED THAT THE PT CAN RECEIVE HD LATER THIS EVENING AND THAT IT IS NOT URGENT. INFORMED AGRAWAL OF DR. SAINI'S ORDERS.
--- NOTE | 2020-08-31 15:55 | NUR ---
PT REPOSITIONED, OFF LOADED WITH PILLOWS. TEMPERATURE 95.5 TEMPORALLY. VAP ORAL CARE PROVIDED.
--- NOTE | 2020-08-31 16:04 | NUR ---
PTT 130. PER PROTOCOL, HOLD HEPARIN DRIP FOR 1 HOUR. THEN DECREASE TO 500 UN/HR.
--- NOTE | 2020-08-31 16:38 | NUR ---
PER PT'S SON, PT RECEIVED VACCINATIONS FOLLOWING FLU 04/04/2020 PNA 09/17/2017 HEPATITIS B 4 SERIES 03/21/2017 AND BOOSTER 08/2017
--- NOTE | 2020-08-31 16:58 | NUR ---
DR. QUESADA SEEING PT AT BEDSIDE
--- NOTE | 2020-08-31 17:37 | NUR ---
BS 189, 2 UNITS INSULIN ADMINISTERED. PT REPOSITIONED. 200 ML OUTPUT FROM RECTAL BAG, 50 ML LIGHT CHERYL URINE FROM BOYD CATHETER.
[2020-08-31] MEDS ORDERED: carvediloL 6.25 MG TAB ONE (18:14)
[2020-08-31] MEDS: carvediloL 6.25 MG TAB PO SCH (18:17)
--- NOTE | 2020-08-31 18:17 | NUR ---
DR. CARDONA HERE AT BEDSIDE SEEING PT. PER DR. CARDONA'S REQUEST, PM DOSE OF COREG BEING ADMINISTERED NOW INSTEAD OF AT 2100 TONIGHT. WILL RESUME NORMALLY TIMING TOMORROW AM.
--- NOTE | 2020-08-31 18:52 | NUR ---
FACTORY HAND AT BEDSIDE
--- NOTE | 2020-08-31 19:15 | NUR ---
HANDOFF GIVEN TO HOG DROPPER DEACON LARKIN FOR CONTINUITY OF CARE
--- NOTE | 2020-08-31 19:30 | NUR ---
PATIENT CARE AND REPORT RECEIVED FROM CAR RN. PATIENT ETT TO VENT, RASS -3, HOB 30 DEGREES, LYING IN A POSITION OF COMFORT. ET TUBE 25 AT THE TEETH. PATIENT VENT SETTINGS ARE ACVC, FIO2 30%, VT 450, RR 20, PEEP 6, TOLERATING THERAPIES IN PLACE WELL. OG TUBE SECURED AND IN PLACE RUNNING NEPRO AT 10 ML/HR, TOLERATING WELL, WILL CONTINUE TO MONITOR. PATIENT CONNECTED TO CONTINUOUS CARDIAC MONITORING, HR 70 AND RR 20, NO SIGNS OF DISTRESS NOTED. IV ACCESS SITES INCLUDE RIGHT FEMORAL TRIPLE LUMEN, LEFT 20G AC, AND LEFT FOREARM AV SHUNT. IV DRIPS CURRENTLY RUNNING INCLUDE PROPOFOL 20 MCG/KG/MIN, 1/2 NS-SODIUM BICARB 100 MEQ 8.4% AT 40 ML/HR, NS AT 5 ML/HR, HEPARIN DRIP AT 500 UNITS/HR. FEMORAL DRESSING SITE INTACT, PATENT, DRY AND FLUSHING WELL. PATIENT WEIGHT APPROXIMATELY 66.7 KG. PATIENT HAS A BOYD CATHETER INTACT, PATENT, SECURED AND DRAINING WELL. SKINS SHOW LEFT FOOT DIGITS 4 AND 5 PREVIOUSLY AMPUTATED AND SOME BRUISING SHOWING ON THE STERNAL AREA. PATIENT OFFLOADED FROM PRESSURE POINTS WITH USE OF PILLOWS AND FREQUENT REPOSITIONING. BED LOCKED AND LOWERED INTO A POSITION OF SAFETY, WILL CONTINUE TO CLOSELY MONITOR AND FREQUENTLY ROUND THROUGHOUT THE SHIFT.
--- NOTE | 2020-08-31 20:00 | NUR ---
VAP ORAL CARE, REPOSITIONING, HYGIENE, SAFETY CHECKS AND SUCTIONING PROVIDED. WILL CONTINUE O CLOSELY MONITOR AND FREQUENTLY ROUND.
--- NOTE | 2020-08-31 20:15 | NUR ---
DIALYSIS NURSE AT BEDSIDE, PATIENT TO RECEIVE DIALYSIS.
--- NOTE | 2020-08-31 20:30 | NUR ---
PTS DAUGHTER CALLED; MESSENGER CALL DONE, FAMILY UPDATED ON PTS PRESENT CONDITION; QUESTIONS ANSWERED
--- NOTE | 2020-08-31 21:55 | NUR ---
PHONE CALL TO DR Breanna CARDONA,PERSONAL CLOTHING LAUNDRY AIDE.READ BACK EKG RESULT.OK TO ORDER DOPAMINE IF PTS BP AND HR CONTINUES TO GO DOWN; MD AWARE PT IS HAVING HD AT THIS TIME. WILL CONTINUE TO CLOSELY MONITOR PT.
--- NOTE | 2020-08-31 22:00 | NUR ---
PATIENT CONTINUES TO REMAIN RASS -3, INTUBATED AND SEDATED. LAYING IN A POSITION OF COMFORT, TOLERATING VENT SETTINGS AND THERAPIES WELL. WILL CONTINUE TO CLOSELY MONITOR AND FREQUENTLY ROUND.
--- NOTE | 2020-08-31 22:10 | NUR ---
DIALYSIS COMPLETED, 1 L OUT.
[2020-08-31] MEDS: DOPamine 400 MG/D5W PREMIX 250 ML IV PRN (23:30)
[2020-08-31] MEDS: SODIUM BICARBONATE 8.4% 100 MEQ in NACL 0.45% 1,000 ML IV SCH (23:32)
[2020-08-31] MEDS ORDERED: DOPamine 400 MG/D5W PREMIX 250 ML IV ONE (23:42)
[2020-09-01] VITALS (37 sets, daily range): BP systolic 100–205; BP diastolic 53–88
--- NOTE | 2020-09-01 | NUR ---
ACCUCHECK PERFORMED, BLOOD GLUCOSE 186, COVERAGE GIVEN. WILL CONTINUE TO CLOSELY MONITOR AND FREQUENTLY ROUND.
[2020-09-01] MEDS: INSULIN LISPRO SLIDING SCALE 100 UNITS/ML VIAL SUBQ PRN ×4 (00:01→17:55)
--- NOTE | 2020-09-01 00:10 | NUR ---
BEAR HUGGER WARMER IN USE, WILL CONTINUE TO CLOSELY MONITOR.
--- NOTE | 2020-09-01 00:30 | NUR ---
VAP ORAL CARE, HYGIENE, SAFETY CHECKS, REPOSITIONING, AND SUCTIONING PROVIDED. WILL CONTINUE TO CLOSELY MONITOR AND FREQUENTLY ROUND.
--- NOTE | 2020-09-01 00:44 | NUR ---
LAB CALLED WITH PTT RESULTS, 60.6, NO CHANGE IN HEPARIN RATE PER PROTOCOL, RECHECK PTT VALUE Q6.
--- NOTE | 2020-09-01 02:00 | NUR ---
PATIENT CONTINUES TO REMAIN RASS -3, INTUBATED AND SEDATED. TOLERATING VENT SETTINGS AND CURRENT THERAPIES WELL. WILL CONTINUE TO CLOSELY MONITOR AND FREQUENTLY ROUND.
--- NOTE | 2020-09-01 04:00 | NUR ---
VAP ORAL CARE, HYGIENE, GOWN CHANGE, CHG BATH, SAFETY CHECKS, REPOSITIONING AND SUCTIONING PROVIDED. TOLERATING CURRENT VENT SETTINGS AND THERAPIES WELL. WILL CONTINUE TO CLOSELY MONITOR AND FREQUENTLY ROUND.
[2020-09-01] MEDS: PIPERACILLIN/TAZOBACTAM 2.25 GM in DEXTROSE 5% 50 ML IV SCH ×3 (04:03→20:27)
[2020-09-01] MEDS: ALBUMIN HUMAN 25% 50 ML IV SCH (04:45)
[2020-09-01] MEDS: BLOOD GLUCOSE MONITORING 1 DEV DEV FS SCH ×3 (05:05→17:56)
[2020-09-01] MEDS: MIDODRINE 5 MG TAB NG SCH ×3 (05:30→17:57)
--- NOTE | 2020-09-01 06:00 | NUR ---
PATIENT CONTINUES TO REST IN A POSITION OF COMFORT, HOB 30 DEGREES, TOLERATING VENT SETTINGS, INTUBATED AND SEDATED, NO SIGNS OF DISTRESS, WILL CONTINUE TO CLOSELY MONITOR AND FREQUENTLY ROUND.
--- NOTE | 2020-09-01 06:00 | NUR ---
PATIENT CONTINUES TO BE SEDATED AND INTUBATED, RASS -3, HR 60 AND RR 20 ON THE MONITOR, NO SIGNS OF DISTRESS NOTED. PATIENT TOLERATING CURRENT VENT SETTINGS AND THERAPIES WELL, WILL CONTINUE TO CLOSELY MONITOR AND FREQUENTLY ROUND.
[2020-09-01 06:27] LABS: ANION GAP 17.1 (8-16); CARBON DIOXIDE 24.6 mmol/L (21-32); POTASSIUM 3.7 mmol/L (3.5-5.1)
[2020-09-01 06:32] LABS: BASOPHILS % (AUTO) 0.3 % (0.0-2.0); EOSINOPHILS % (AUTO) 0.4 % (0.0-4.0); HEMATOCRIT 23.7 % (36-48); HEMOGLOBIN 7.8 g/dL (12.0-16.0); LYMPHOCYTES # (AUTO) 0.9 K/uL (2.5-16.5); LYMPHOCYTES % (AUTO) 7.5 % (20.5-51.1); MEAN CORPUSCULAR HEMOGLOBIN 31 pg (27-31); MEAN CORPUSCULAR HGB CONC 33 g/dL (33-37); MEAN CORPUSCULAR VOLUME 94.9 fL (80-94); MONOCYTES # (AUTO) 0.3 K/uL (0.8-1.0); MONOCYTES % (AUTO) 2.8 % (1.7-9.3); NEUTROPHILS # (AUTO) 10.1 K/uL (1.8-7.7); PLATELET COUNT (AUTO) 103 K/uL (140-450); RED BLOOD CELL COUNT(AUTO) 2.49 MIL/uL (4.20-5.40); RED CELL DISTRIBUTION WIDTH 17.6 % (11.6-13.7); WHITE BLOOD COUNT (AUTO) 11.4 K/uL (4.8-10.8)
[2020-09-01 06:36] LABS: CREATININE 5.1 mg/dL (0.6-1.3)
--- NOTE | 2020-09-01 07:15 | NUR ---
CARE AND REPORT ENDORSED TO CAR WORTHY.
--- NOTE | 2020-09-01 07:15 | NUR ---
RECEIVED REPORT FROM AUTOMOTIVE MECHANICAL ENGINEER NURSE. PATIENT SUPINE IN BED, HOB 30 DEGREES, BREATHING EVEN AND UNLABORED, NO SIGNS OF ACUTE DISTRESS NOTED. SEDATED TO RASS -3, RESPONDS TO LIGHT PAIN. ETT TO VENT: ACVC FI02 30%, RR 20, PEEP 5. OG TUBE FEEDING RUNNING NEPRO @ 10 ML/HR, BOYD CATHETER IN PLACE, DRAINING TO GRAVITY, RECTAL TUBE IN PLACE, DRAINING TO GRAVITY. REHANA HUGGER IN PLACE. R FEMORAL TRIPPLE LUMEN, L AC 20 G, L ARM AV SHUNT. INFUSING: HEPARIN @ 500 UNITS/HR, SODIUM BICARB @ 40 ML/HR, PROPOFOL @ 5 MCG/KG/MIN. COMPENSATION SUPERVISOR IN PLACE, SAFETY MEASURES IN PLACE.
--- NOTE | 2020-09-01 08:03 | NUR ---
RECEIVED PT ON CMV ON DOCUMENTED SETTINGS. NO SIGNS OF RESPIRATORY DISTRESS. BMV AT BEDSIDE. VENT PLUGGED INTO RED OUTLET. AIRWAY IS PATENT. ETT SECURED. ALARMS SET AND FUNCTIONING PROPERLY. WILL CONTINUE TO MONITOR.
[2020-09-01] MEDS: PANTOPRAZOLE 40 MG INJ VIAL IVP SCH (08:45)
[2020-09-01] MEDS: VIT-B COMP/VIT-C/FOLIC ACID 1 TAB PO SCH (08:46)
[2020-09-01] MEDS: carvediloL 6.25 MG TAB PO SCH ×2 (09:00→20:32)
--- NOTE | 2020-09-01 09:00 | NUR ---
ADMINISTERED SCHEDULED MEDS PER MD ORDER. COREG HELD DUE TO HYPOTENSION. MED EDUCATION PROVIDED, REINFORCEMENT NEEDED. G TUBE RESIDUAL 150 ML, FLUSHED BEFORE AND AFTER MEDS. MORNING HYGIENE PROVIDED: VAP ORAL CARE, CHG BATH, CATHETER CARE, CHANGED ALL DIRTY LINEN. PATIENT REPOSITIONED AND OFFLOADED PRESSURE WITH PILLOWS. BED IN LOW POSITION, BOTTOM SPRAYER IN PLACE, SAFETY MEASURES IN PLACE.
--- NOTE | 2020-09-01 09:15 | NUR ---
DR SHANKS ASSESSING PATIENT AT BEDSIDE. PER DR SHANKS, OK TO HOLD 0900 BP MED. AWARE OF BLOOD CULTURE RESULTS, NEW ORDERS: VANCO PER PHARMACY, REPEAT BLOOD CULTURE.
[2020-09-01] MEDS ORDERED: VANCOMYCIN PER PHARMACY MC PRN (09:35)
[2020-09-01] MEDS ORDERED: VANCOMYCIN 1,000 MG in NACL 0.9% 250 ML IV SCH (11:00)
--- NOTE | 2020-09-01 11:30 | NUR ---
DR RAMIREZ AT BEDSIDE WITH PATIENT. NO NEW ORDERS AT THIS TIME.
--- NOTE | 2020-09-01 12:15 | NUR ---
ADMINISTERED SCHEDULED MEDS PER MD ORDER. BLOOD GLUCOSE CHECKED, 170, 2 UNITS HUMALOG ADMINISTERED. MED EDUCATION PROVIDED, REINFORCEMENT NEEDED. G TUBE FLUSHED BEFORE AND AFTER MEDS. PATIENT REPOSITIONED AND OFFLOADED PRESSURE WITH PILLOWS. ELECTROPHYSIOLOGY TECH IN PLACE, SAFETY MEASURES IN PLACE.
--- NOTE | 2020-09-01 17:58 | NUR ---
BLOOD GLUCOSE CHECKED, 171, 2 UNITS HUMALOG INSULIN ADMINISTERED. MIDODRINE HELD DUE TO TRENDING HTN THROUGH SHIFT. MED EDUCATION PROVIDED, REINFORCEMENT NEEDED. PATIENT CLEANED, ALL DIRTY LINEN CHANGED. REPOSITIONED AND OFFLOADED PRESSURE WITH PILLOWS. MARINA MANAGER IN PLACE. SAFETY MEASURES IN PLACE.
--- NOTE | 2020-09-01 19:00 | NUR ---
RECEIVED CARE AND REPORT FROM CAR RN. PATIENT ETT TO VENT, INTUBATED AND SEDATED, RASS -3, HOB 30 DEGREES IN A POSITION OF COMFORT. VENT SETTINGS ARE CURRENTLY AC/VC, FIO2 30%, VT 425, RR 20, PEEP 5, TOLERATING WELL, SATURATION 100%ON THE MONITOR. PATIENT HAS AN OG TUBE IN PLACE, SECURED, FLUSHES WELL, ASPIRATED AND AUSCULTATED, RESIDUALS 100 ML. TUBE FEEDING ORDER NEPRO AT 10 ML/HR, FWF 130 Q4, WILL CONTINUE TO MONITOR. PATIENT CONNECTED TO CONTINUOUS TELE MONITOR, HR 87 AND RR 20 ON THE MONITOR, NO SIGNS OF DISTRESS NOTED, WILL CONTINUE TO CLOSELY MONITOR. IV ACCESS SITE IS RIGHT FEMORAL TRIPLE LUMEN AND LEFT FA AV SHUNT PRESENT WITH BRUIT NOTED. IV DRIPS CURRENTLY RUNNING ARE SODIUM BICARB 8.4% 100 MEQ AT 40 ML/HR, HEPARIN AT 500 UNITS/HR, NS TKO AT 5 ML/HR, AND PROPOFOL AT 5 MCG/KG/MIN. PATIENT WEIGHT IS APPROXIMATELY 68.9 KG. PATIENT HAS A BOYD CATHETER IN PLACE, SECURED AND DRAINING WELL. RECTAL TUBE IN PLACE, INTACT AND SECURED DRAINING WELL, STOOL AT THE 400 ML RADHA IN THE DRAIN BAG. PATIENT SKINS SHOW LEFT FOOT DIGITS 4 AND 5 AMPUTATED, BRUISING ON THE CHEST AND OLD LACERATIONS ON THE TONGUE. PATIENT OFFLOADED FROM PRESSURE POINTS WITH USE OF PILLOWS AND FREQUENT REPOSITIONING. BED LOCKED AND LOWERED INTO A POSITION OF SAFETY AND PATIENT PLACED IN A POSITION OF COMFORT. WILL CONTINUE TO CLOSELY MONITOR AND FREQUENTLY ROUND THROUGHOUT THE SHIFT.
--- NOTE | 2020-09-01 20:00 | NUR ---
VAP ORAL CARE, HYGIENE, REPOSITIONING, SAFETY CHECKS AND SUCTIONING PROVIDED, TOLERATING THERAPIES WELL, NO SIGNS OF DISTRESS NOTED. WILL CONTINUE TO CLOSELY MONITOR AND FREQUENTLY ROUND.
--- NOTE | 2020-09-01 22:00 | NUR ---
PATIENT CONTINUES TO REST IN A POSITION OF COMFORT, HOB 30 DEGREES, TOLERATING CURRENT VENT SETTINGS AND THERAPIES WELL. HR 71 AND RR 20 ON THE MONITOR. WILL CONTINUE TO CLOSELY MONITOR AND FREQUENTLY ROUND.
[2020-09-01] MEDS ORDERED: SODIUM BICARBONATE 8.4% PFS 50 MEQ/50 ML SYR IVP ONE (23:58)
[2020-09-02] VITALS (33 sets, daily range): BP systolic 88–138; BP diastolic 47–68
--- NOTE | 2020-09-02 | NUR ---
VAP ORAL CARE, REPOSITIONING, HYGIENE, SAFETY CHECKS, LINEN CHANGE, AND SUCTIONING PROVIDED. PATIENT CONTINUES TO REMAIN RASS -3, INTUBATED AND SEDATED. HR 68 AND RR 20 ON THE MONITOR. NO SIGNS OF DISTRESS NOTED. LYING IN A POSITION OF COMFORT, HOB 30 DEGREES, TOLERATING VENT SETTINGS AND THERAPIES WELL. WILL CONTINUE TO CLOSELY MONITOR AND FREQUENTLY ROUND.
--- NOTE | 2020-09-02 00:10 | NUR ---
ACCUCHECK PERFORMED, BLOOD GLUCOSE 189, COVERAGE GIVEN. WILL CONTINUE TO CLOSELY MONITOR AND FREQUENTLY ROUND.
[2020-09-02] MEDS: BLOOD GLUCOSE MONITORING 1 DEV DEV FS SCH ×5 (00:13→23:43)
[2020-09-02] MEDS: INSULIN LISPRO SLIDING SCALE 100 UNITS/ML VIAL SUBQ PRN ×5 (00:20→23:46)
[2020-09-02] MEDS: SODIUM BICARBONATE 8.4% 100 MEQ in NACL 0.45% 1,000 ML IV SCH ×2 (00:21→23:38)
--- NOTE | 2020-09-02 02:00 | NUR ---
PATIENT CONTINUING TO TOLERATE CURRENT THERAPIES, VENT SETTINGS AND INTERVENTIONS WELL. HR 61 AND RR 20, NSR ON THE MONITOR. NO SIGNS OF DISTRESS NOTED. RESTING IN A POSITION OF COMFORT, HOB 30 DEGREES. WILL CONTINUE TO CLOSELY MONITOR AND FREQUENTLY ROUND.
[2020-09-02] MEDS: PIPERACILLIN/TAZOBACTAM 2.25 GM in DEXTROSE 5% 50 ML IV SCH ×3 (04:00→20:18)
--- NOTE | 2020-09-02 04:00 | NUR ---
CHG SPONGE BATH, VAP ORAL CARE, CARMELO CARE, HYGIENE, LINEN CHANGE, SAFETY CHECKS, SUCTIONING AND REPOSITIONING PROVIDED. PATIENT NSR, HR 64 AND RR 20 ON THE MONITOR, SATURATION 98%. CONTINUES TO TOLERATE CURRENT THERAPIES WELL, NO SIGNS OF DISTRESS NOTED. NO CHANGE IN NEURO STATUS, REMAINS NON RESPONSIVE TO STIMULI. WILL CONTINUE TO CLOSELY MONITOR AND FREQUENTLY ROUND.
[2020-09-02] MEDS: MIDODRINE 5 MG TAB NG SCH ×5 (05:24→23:38)
[2020-09-02 05:57] LABS: BASOPHILS # (AUTO) 0.1 K/uL (0.00-0.22); BASOPHILS % (AUTO) 0.7 % (0.0-2.0); EOSINOPHILS # (AUTO) 0.3 K/uL (0-0.4); EOSINOPHILS % (AUTO) 2.7 % (0.0-4.0); HEMATOCRIT 22.2 % (36-48); HEMOGLOBIN 7.4 g/dL (12.0-16.0); MEAN CORPUSCULAR HEMOGLOBIN 32 pg (27-31); MEAN CORPUSCULAR HGB CONC 33 g/dL (33-37); MONOCYTES # (AUTO) 0.3 K/uL (0.8-1.0); MONOCYTES % (AUTO) 3.3 % (1.7-9.3); NEUTROPHILS # (AUTO) 8.3 K/uL (1.8-7.7); PLATELET COUNT (AUTO) 96 K/uL (140-450); RED BLOOD CELL COUNT(AUTO) 2.29 MIL/uL (4.20-5.40); RED CELL DISTRIBUTION WIDTH 17.7 % (11.6-13.7)
--- NOTE | 2020-09-02 06:00 | NUR ---
PATIENT CONTINUES TO REST IN A POSITION OF COMFORT. TOLERATING CURRENT THERAPIES AND VENT WELL. NO SIGNS OF DISTRESS NOTED. WILL CONTINUE TO CLOSELY MONITOR AND FREQUENTLY MONITOR.
--- NOTE | 2020-09-02 06:15 | NUR ---
ACCUCHECK GATHERED, BLOOD GLUCOSE 239, COVERAGE GIVEN. WILL CONTINUE TO CLOSELY MONITOR AND FREQUENTLY ROUND.
[2020-09-02 06:21] LABS: ALBUMIN 2.9 g/dL (3.4-5.0); ANION GAP 18.6 (8-16); CARBON DIOXIDE 23.3 mmol/L (21-32); TOTAL BILIRUBIN 0.8 mg/dL (0.0-1.0)
[2020-09-02 06:23] LABS: POTASSIUM 2.9 mmol/L (3.5-5.1)
[2020-09-02 06:24] LABS: CREATININE 6.5 mg/dL (0.6-1.3)
--- NOTE | 2020-09-02 06:24 | NUR ---
LAB CALLED WITH CRITICAL LAB VALUES POTASSIUM 2.9, CREATININE 6.5, AND BUN 51. WILL CALL MD FOR STATUS UPDATE AND ANY FURTHER ORDERS.
[2020-09-02 06:37] LABS: LYMPHOCYTES % (AUTO) 9.8 % (20.5-51.1); NEUTROPHILS % (AUTO) 83.5 % (42.2-75.2)
--- NOTE | 2020-09-02 06:45 | NUR ---
UPDATED PTT VALUE OF 37.4, PER HEPARIN PROTOCOL, GAVE 1600 UNITS HEPARIN AND INCREASED HEPARIN DRIP UP 100 UNITS TO A CURRENT RATE OF 600 UNITS/HR. PLACED NEXT PTT LAB DRAW FOR 1245. WILL CONTINUE TO CLOSELY MONITOR AND FREQUENTLY ROUND.
[2020-09-02] MEDS: hePARIN / DEXT 5% PREMIX 250 ML IV SCH (06:48)
--- NOTE | 2020-09-02 06:50 | NUR ---
PAGED FOR NEPHRO , DR. EVIE RAMIREZ. SAMPLE STITCHER NEPHALEAH BARROS IS DR. OSBORNE, AWAITING CALLBACK FROM MD TO REPORT CRITICAL LABS AND UPDATE ON PATIENT STATUS.
[2020-09-02] MEDS ORDERED: POTASSIUM CHLORIDE 20% 40 MEQ/15 ML UDC GT SCH (08:15)
[2020-09-02] MEDS: VIT-B COMP/VIT-C/FOLIC ACID 1 TAB PO SCH (08:35)
[2020-09-02] MEDS: PANTOPRAZOLE 40 MG INJ VIAL IVP SCH (08:35)
--- NOTE | 2020-09-02 08:40 | NUR ---
ADMINISTERED SCHEDULED MEDS PER MD ORDER. COREG HELD DUE TO BLOOD PRESSURE TRENDING LOW. 40MEQ KCL ONE TIME ORDER GIVEN FOR POTASSIUM LAB OF 2.9. MED EDUCATION PROVIDED, REINFORCEMENT NEEDED. G TUBE RESIDUAL 110 ML, FLUSHED BEFORE AND AFTER MEDS. MORNING HYGIENE PROVIDED: VAP ORAL CARE, CATHETER CARE, CHG BATH, CHANGED ALL DIRTY LINEN. PATIENT REPOSITIONED AND OFFLOADED PRESSURE WITH PILLOWS. REHANA HUGGER IN PLACE. BEAMSTER IN PLACE, SAFETY MEASURES IN PLACE.
--- NOTE | 2020-09-02 08:54 | NUR ---
DR DAN PAGED FOR NEURO CONSULT.
[2020-09-02] MEDS: carvediloL 6.25 MG TAB PO SCH ×2 (09:00→20:18)
--- NOTE | 2020-09-02 09:31 | NUR ---
DR SHANKS ROUNDING ON PATIENT AT BEDSIDE. MADE AWARE OF PLT DROPPING BELOW 100, PER DR SHANKS CONTINUE HEPARIN DRIP DUE TO ELEVATED TROPONINS. WILL CONTINUE TO MONITOR. Addendum: 09/02/20 at 0940 by Jackie Collier RN RN DR SHANKS CALLED PATIENT'S SON TO UPDATE ON PATIENT CONDITION AND UPCOMING NEURO CONSULT.
--- NOTE | 2020-09-02 09:55 | NUR ---
PATIENT'S SON CALLED BACK AFTER SPEAKING WITH DR SHANKS, REQUESTING A TIME TO MEET WITH IMMEDIATE FAMILY AND AN MD CARING FOR PATIENT, TO GO OVER PATIENT CONDITION A FAMILY. DR SHANKS PAGED, AWAITING CALL BACK.
[2020-09-02] MEDS ORDERED: VANCOMYCIN HCL 1,000 MG in DEXTROSE 5% 250 ML IV SCH (10:45)
[2020-09-02] MEDS ORDERED: ALBUMIN HUMAN 25% 50 ML IV SCH (11:00)
--- NOTE | 2020-09-02 11:00 | NUR ---
PATIENT'S SON HERE TO VISIT THE PATIENT. HE WAS INFORMED OF PATIENT CONDITION AND GIVEN PROPER PPE TO SEE PATIENT FROM OUTSIDE HER ROOM DOOR. MORE FAMILY MEMBERS COMING IN TO SEE THE PATIENT ONE AT A TIME. ALL QUESTIONS ANSWERED.
--- NOTE | 2020-09-02 11:09 | NUR ---
PARADICHLOROBENZENE MACHINE OPERATOR CALLED PER DR NOLAN ORDER OF HD TODAY. DR SHANKS'S OFFICE PAGED AGAIN IN REGARDS TO PATIENT'S FAMILY REQUESTING TO SPEAK TO A DR IN PERSON.
--- NOTE | 2020-09-02 11:18 | NUR ---
DR QUESADA OFFICE CALLED IN REGARDS TO FAMILY MEMBERS QUESTING TO SPEAK TO A PHYSICIAN IN PERSON. HAS BEEN PAGED BY HIS OFFICE. AWAITING CALL BACK.
[2020-09-02 12:14] LABS: PROTHROMBIN TIME 12.3 secs (10.8-13.4)
--- NOTE | 2020-09-02 12:59 | NUR ---
ADMINISTERED SCHEDULED MEDS PER MD ORDER. BLOOD GLUCOSE CHECKED, 252, 6 UNITS HUMALOG INSULIN PROVIDED. MED EDUCATION PROVIDED, REINFORCEMENT NEEDED. PT REPOSITIONED AND OFFLOADED PRESSURE WITH PILLOWS. ELECTRIC DOLLY OPERATOR IN PLACE. SAFETY MEASURES IN PLACE.
--- NOTE | 2020-09-02 14:13 | NUR ---
DR DAN'S OFFICE CALLED FOR CONSULT. DR DAN PAGED BY HIS OFFICE.
--- NOTE | 2020-09-02 14:16 | NUR ---
MACHINE CLOTHING WORKER CALLED, SPOKE TO RN AND LET HER KNOW HD IS SCHEDULED FOR TODAY. DIALYSIS NURSE AWARE.
--- NOTE | 2020-09-02 15:02 | NUR ---
DR DAN AT BEDSIDE ASSESSING PATIENT.
[2020-09-02] MEDS ORDERED: ALBUMIN HUMAN 25% 50 ML IV ONE ×2 (16:15)
--- NOTE | 2020-09-02 16:20 | NUR ---
ORAL CARE PROVIDED. PATIENT HYGIENE PROVIDED, CHANGED ALL DIRTY LINEN. PATIENT REPOSITIONED AND OFFLOADED PRESSURE WITH PILLOWS. HVAC SHEET METAL INSTALLER HELPER IN PLACE, SAFETY MEASURES IN PLACE.
--- NOTE | 2020-09-02 16:30 | NUR ---
PRESS OPERATOR APPRENTICE AT BEDSIDE, BEGINNING HD AT THIS TIME. PATIENT STABLE AT THIS TIME.
--- NOTE | 2020-09-02 17:56 | NUR ---
ADMINISTERED SCHEDULED MEDS PER MD ORDER. BLOOD GLUCOSE CHECKED, 208, 4 UNITS HUMALOG INSULIN ADMINISTERED. MED EDUCATION PROVIDED, REINFORCEMENT NEEDED. DIALYSIS REMAINS AT BEDSIDE CONTINUING HD.
--- NOTE | 2020-09-02 19:05 | NUR ---
BEDSIDE REPORT GIVEN TO PAPER CUP MACHINE TENDER NURSE FOR CONTINUITY OF CARE. PATIENT STABLE AT THIS TIME.
--- NOTE | 2020-09-02 19:30 | NUR ---
RECEIVED CARE REPORT AND [facility] PATIENT ETT TO VENT, RASS -3, INTUBATED, NON RESPONSIVE TO STIMULI AND OBTUNDED, VENT SETTINGS CURRENTLY AC/VC, FIO2 28%, VT 425, RR 20 AND PEEP 5, TOLERATING VENT SETTINGS WELL, NO SIGNS OF DISTRESS NOTED. PATIENT HAS AN OG TUBE IN PLACE, SECURED, FLUSHES WELL, RESIDUALS [address] ML[address] OG TUBE IN PLACE AND SECURED, FLUSHES WELL, AUSCULTATED AND ASPIRATED. TUBE FEEDING ORDER OF NEPRO AT 10 ML/HR, WILL CONTINUE TO RECHECK RESIDUALS OFTEN. PATIENT CONNECTED TO CONTINUOUS TELE MONITORING, HR 74 AND RR 20 ON THE MONITOR, NSR. IV ACCESS SITES ARE RIGHT FEMORAL TRIPLE LUMEN, DRESSING DRY, INTACT AND SECURED. LEFT AV SHUNT IN PLACE, BRUIT NOTED. IV DRIPS CURRENTLY RUNNING ARE SODIUM BICARB 8.4% 100 MEQ RUNNING AT 40 ML/HR, NS TKO AT 5 ML/HR, AND HEPARIN 600 UNITS/HR. PATIENT ESTIMATED WEIGHT IS APPROXIMATELY 68.9 KG. PATIENT HAS A BOYD CATHETER IN PLACE, SECURED, INTACT AND DRAINING WELL. RECTAL TUBE IN PLACE, SECURED AND INTACT, STOOL AT THE 420 ML RADHA. PATIENT OFFLOADED FROM PRESSURE POINTS WITH USE OF PILLOWS AND FREQUENT REPOSITIONING. BED LOCKED AND LOWERED INTO A POSITION OF SAFETY. WILL CONTINUE TO CLOSELY MONITOR AND FREQUENTLY ROUND THROUGHOUT THE SHIFT.
--- NOTE | 2020-09-02 19:45 | NUR ---
DIALYSIS OUTPUT TOTAL OF 1.5 L, COMPLETED AT 1845.
--- NOTE | 2020-09-02 20:00 | NUR ---
VAP ORAL CARE, REPOSITIONING, CARMELO CARE, SAFETY CHECKS, AND SUCTIONING PROVIDED. PATIENT CONTINUES TO TOLERATE THE VENT SETTINGS WELL, HR 68 AND RR 20, NO SIGNS OF DISTRESS NOTED. WILL CONTINUE TO CLOSELY MONITOR AND FREQUENTLY ROUND.
--- NOTE | 2020-09-02 22:00 | NUR ---
PATIENT CONTINUES TO REST IN A POSITION OF COMFORT, OFFLOADED FROM PRESSURE POINTS, HOB 30 DEGREES, TOLERATING CURRENT THERAPIES AND VENT WELL. WILL CONTINUE TO CLOSELY MONITOR AND FREQUENTLY ROUND.
[2020-09-03] VITALS (30 sets, daily range): BP systolic 120–150; BP diastolic 53–80
--- NOTE | 2020-09-03 | NUR ---
VAP ORAL CARE, REPOSITIONING, HYGIENE, SAFETY CHECKS, AND SUCTIONING PROVIDED. PATIENT HOB 30 DEGREES, INTUBATED, IN A POSITION OF COMFORT. HR 74 AND RR 20, NO SIGNS OF DISTRESS NOTED. TOLERATING CURRENT THERAPIES WELL. WILL CONTINUE TO CLOSELY MONITOR AND FREQUENTLY ROUND.
--- NOTE | 2020-09-03 02:00 | NUR ---
PATIENT CONTINUES TO REST IN A POSITION OF COMFORT. TOLERATING CURRENT VENT SETTINGS AND THERAPIES WELL. NO CHANGE IN PATIENTS NEURO STATUS, CONTINUES TO BE NON RESPONSIVE TO STIMULI. SAFETY CHECKS PROVIDED. WILL CONTINUE TO CLOSELY MONITOR AND FREQUENTLY ROUND.
--- NOTE | 2020-09-03 02:51 | NUR ---
LAB CALLED WITH PTT VALUE OF 63.9, VALUE IS THERAPEUTIC, NO CHANGE IN HEPARIN RATE PER PROTOCOL, OBTAIN UPDATED PTT Q6.
--- NOTE | 2020-09-03 04:00 | NUR ---
SPONGE BATH, VAP ORAL CARE, LINEN CHANGE, CARMELO CARE, SAFETY CHECKS, REPOSITIONING AND SUCTIONING PROVIDED. PATIENT CONTINUES TO TOLERATE VENT SETTINGS AND OTHER THERAPIES WELL. HOB 30 DEGREES, INTUBATED, REMAINS NONRESPONSIVE TO STIMULI. NO SIGNS OF DISTRESS. WILL CONTINUE TO CLOSELY MONITOR AND FREQUENTLY ROUND.
[2020-09-03] MEDS: PIPERACILLIN/TAZOBACTAM 2.25 GM in DEXTROSE 5% 50 ML IV SCH ×3 (04:54→21:00)
[2020-09-03] MEDS: BLOOD GLUCOSE MONITORING 1 DEV DEV FS SCH ×3 (05:00→17:51)
[2020-09-03] MEDS: INSULIN LISPRO SLIDING SCALE 100 UNITS/ML VIAL SUBQ PRN ×3 (05:02→17:55)
[2020-09-03] MEDS: MIDODRINE 5 MG TAB NG SCH ×3 (05:04→17:55)
[2020-09-03 05:48] LABS: ALBUMIN 3.3 g/dL (3.4-5.0); ANION GAP 19.5 (8-16); POTASSIUM 3.5 mmol/L (3.5-5.1); TOTAL BILIRUBIN 1.3 mg/dL (0.0-1.0)
[2020-09-03 05:58] LABS: CREATININE 5.2 mg/dL (0.6-1.3)
--- NOTE | 2020-09-03 06:00 | NUR ---
PATIENT CONTINUES TO BE IN A POSITION OF COMFORT, HR 73 AND RR 20 ON THE MONITOR. TOLERATING CURRENT THERAPIES WELL. WILL CONTINUE TO CLOSELY MONITOR AND FREQUENTLY ROUND.
--- NOTE | 2020-09-03 06:05 | NUR ---
LAB CALLED WITH CRITICAL VALUES, CREATININE 5.2 AND BUN 33.
[2020-09-03 06:31] LABS: BASOPHILS # (AUTO) 0.1 K/uL (0.00-0.22); BASOPHILS % (AUTO) 0.6 % (0.0-2.0); EOSINOPHILS # (AUTO) 0.3 K/uL (0-0.4); EOSINOPHILS % (AUTO) 2.2 % (0.0-4.0); HEMATOCRIT 21.5 % (36-48); LYMPHOCYTES # (AUTO) 0.6 K/uL (2.5-16.5); LYMPHOCYTES % (AUTO) 4.9 % (20.5-51.1); MEAN CORPUSCULAR HEMOGLOBIN 31 pg (27-31); MEAN CORPUSCULAR HGB CONC 32 g/dL (33-37); MEAN CORPUSCULAR VOLUME 97.4 fL (80-94); MONOCYTES # (AUTO) 0.4 K/uL (0.8-1.0); MONOCYTES % (AUTO) 3.3 % (1.7-9.3); NEUTROPHILS # (AUTO) 11.6 K/uL (1.8-7.7); PLATELET COUNT (AUTO) 88 K/uL (140-450); RED CELL DISTRIBUTION WIDTH 17.7 % (11.6-13.7); WHITE BLOOD COUNT (AUTO) 13.1 K/uL (4.8-10.8)
--- NOTE | 2020-09-03 07:19 | NUR ---
REC'D PT ON CARESCAPE VENT SETTINGS AC 20 VT 425 PEEP 5 FIO2 28% ALARMS ON AND AUDIBLE AND VENT IS PLUGGED INTO RED OUTLET, BVM AT HOB SXN PT SMALL AMT OF BROWN COLOR SECRETIONS, B\S ARE COARSE BILATERALLY AND PT IS ORALLY INTUBATED WITH ETT 8.0 AT 24CM PT IS RESTING WILL CONTINUE TO MONITOR PT
--- NOTE | 2020-09-03 07:25 | NUR ---
RECEIVED PT FROM LINE CONSTRUCTION SUPERINTENDENT RN. PT IS OFF SEDATION BUT IS NON-RESPONSIVE TO STIMULI, LACKING GAG REFLEX. PT IS ETT TO VENT ACVC 28% FIO2, VT 425, R 20, PEEP 5. PT IS SR ON THE MONITOR AT THIS TIME. PT HAS ACCESS AT R FEMORAL TRIPLE LUMEN. PT HAS L FA AV SHUNT FOR HEMODIALYSIS. PT IS ON HEPARIN AT 700 UNITS/HR, NS TKO, AND 1/2 NS WITH SODIUM BICARB 8.4% 100 MEQ RUNNING AT 40 ML/HR. PT HAS OG TUBE IN PLACE WITH NEPRO RUNNING AT 20 ML/HR WITH FWF 130 ML Q4H. BOYD CATHETER AND RECTAL TUBE ARE IN PLACE. PT CURRENTLY HAS REHANA HUGGER ON DUE TO LOW TEMPERATURE PER LINE CONSTRUCTION SUPERINTENDENT. WILL CONTINUE TO MONITOR, HOB AT 30 DEG.
--- NOTE | 2020-09-03 07:30 | NUR ---
REPORT AND CARE ENDORSED TO CAR WORTHY.
[2020-09-03 08:11] LABS: HEMOGLOBIN 6.9 g/dL (12.0-16.0)
[2020-09-03] MEDS: PANTOPRAZOLE 40 MG INJ VIAL IVP SCH (08:11)
[2020-09-03] MEDS: VIT-B COMP/VIT-C/FOLIC ACID 1 TAB PO SCH (08:12)
[2020-09-03] MEDS: carvediloL 6.25 MG TAB PO SCH ×2 (08:17→21:01)
--- NOTE | 2020-09-03 08:28 | NUR ---
RECEIVED CALL BACK FROM DR. SHANKS REGARDING PT LOW HGB, HCT, AND PLATELET. OKAY TO STOP HEPARIN DRIP PER DR. SHANKS AND INFUSE 1 UNIT PRBC
--- NOTE | 2020-09-03 09:18 | NUR ---
MEDICATIONS ADMINISTERED PER ORDER. PT TOLERATED WELL. 100 ML RESIDUAL FROM TUBE FEED, AUSCULTATED TO CONFIRM OG TUBE PLACEMENT, KEPT RATE AT SAME RATE. RECTAL TUBE CONTINUES TO LEAK. CHECKED BALLOON FOR PROPER INFLATION AND IRRIGATED. PT CLEANED, CHANGED, REPOSITIONED. CHG BATH, BOYD CARE, AND VAP ORAL CARE PROVIDED. TEMPERATURE 97.5 TEMPORALLY, WILL KEEP REHANA HUGGER ON FOR NOW.
--- NOTE | 2020-09-03 09:31 | NUR ---
PT. WITH LOW BRITTANI SCALE AT HIGH RISK, CONTINUE TO FOLLOW PRESSURE INJURY PREVENTION INTERVENTIONS. -TURN AND REPOSITION PATIENT Q 2H -ASSESS AND MONITOR SKIN CONDITION DURING POSITION CHANGE -OFFLOAD BILATERAL HEELS BY PLACING PILLOWS UNDER CALVES AT ALL TIMES, UNLESS OTHERWISE CONTRAINDICATED -PRESSURE REDISTRIBUTION BY PLACING PILLOWS AND OFFLOADING SACRALCOCCYX -KEEP SKIN CLEAN AND DRY AT ALL TIMES.
--- NOTE | 2020-09-03 09:37 | NUR ---
DR. SHANKS SEEING PT
--- NOTE | 2020-09-03 12:05 | NUR ---
BLOOD TRANSFUSION STARTED. VSS.
--- NOTE | 2020-09-03 12:13 | NUR ---
BS 338, 8 UNITS INSULIN ADMINISTERED PER SLIDING SCALE. PT REPOSITIONED AND OFFLOADED BONY PROMINENCES WITH PILLOWS. VAP ORAL CARE PROVIDED. TEMPERATURE 97.5 TEMPORALLY.
--- NOTE | 2020-09-03 13:52 | NUR ---
09/03/20 RD FOLLOW UP COMPLETED PLEASE REFER TO NUTRITION ASSESSMENT UNDER CARE ACTIVITY FOR ESTIMATED NUTRITIONAL NEEDS. 1. WHEN RESIDUALS IMPROVE, CONSIDER INCREASING RATE TO GOAL OF 30 ML/HR. 2. CURRENT ORDER: NEPRO 1.8 @ 30 ML/HR -PROVIDES 1296 KCAL AND 58 GM OF PROTEIN, MEETS 100% KCAL AND >80% PROTEIN NEEDS. 3. CONTINUE FLUSH [address] TO FOLLOW-UP 2-3 DAYS, HIGH RISK LINDA FAITH RD
--- NOTE | 2020-09-03 14:24 | NUR ---
BLOOD TRANSFUSION FINISHED, VSS.
--- NOTE | 2020-09-03 14:59 | NUR ---
SPOKE TO TUNNELING MACHINE OPERATOR CADY. PER CADY, INSURANCE WISHES TO TRANSFER PT TO ANOTHER ACUTE CARE FACILITY. CADY INFORMED INSURANCE OF PT'S STATUS AND POOR PROGNOSIS AND WISHES TO TRANSFER ANYWAY. AWAITING CALL FROM INSURANCE.
--- NOTE | 2020-09-03 15:05 | NUR ---
DR. PONCE SEEING PT
--- NOTE | 2020-09-03 15:06 | NUR ---
DC PLANNING: RECEIVED A CALL FROM [facility] [phone] SPOKE WITH PAYAL STATED PT NEEDS TO BE TRANSFERRED TO THE CONTRACTED FACILITY. FAXED ALL THE CLINICALS AND UPDATED PT'S STATUS AND CONDITIONS AND AWAITING FOR ANOTHER FAMILY MEMBER TO COME FROM OUT OF STATE. YUKO MOE WILL LOOK FOR A CONTRACTED FACILITY AND WILL CALL BACK PROVIDE ICU'S NUMBER. CM TO FOLLOW Addendum: 09/04/20 at 1255 by Latia Valadez RN DC PLANNING RECEIVED A CALL FROM PAYAL JEFFERY AT [facility] STATED SHE TALKED TO PT'S SON AND HE AGREED WITH THE TRANSFER TO THE CONTRACTED FACILITY. PAYAL REQUESTED THE ORDER TO BE FAXED. I UPDATED PT'S CONDITION AND AWAITING FOR THE FAMILY FROM OUT OF STATE. YUKO MOE STILL OK TO TRANSFER AND WILL CALL SOON SHE FINDS CONTRACTED HOSPITALS. CM TO FOLLOW Addendum: 09/04/20 at 1258 by Latia Valadez RN DC PLANNING: RECEIVED A CALL FROM MELINA SPOKE WITH MANAN [phone] WORKING ON THE TRANSFER AND AWAITING FOR DR SHANKS TO CALL HER . JOSE D TO FOLLOW
--- NOTE | 2020-09-03 17:30 | NUR ---
BS 391, 10 UNITS ADMINISTERED PER SLIDING SCALE. PT REPOSITIONED, OFF LOADED WITH PILLOWS. TEMPERATURE 99.9, REHANA HUGGER REMOVED FOR NOW.
--- NOTE | 2020-09-03 19:20 | NUR ---
HANDOFF GIVEN TO DRUG ENFORCEMENT AGENT RN FOR CONTINUITY OF CARE
--- NOTE | 2020-09-03 19:20 | NUR ---
RECEIVED PATIENT FROM AM SHIFT NURSE FOR CONTINUITY OF CARE. ETT TO VENT. VENT SETTINGS: AC/VC FIO2 28% VT 425 RR 20 PEEP 5. OSAT 95%. SUCTIONED THIN WHITE SECRETIONS. S1/S2 AUSCULTATED. SKIN WARM, DRY. RIGHT FEMORAL ACCESS NOTED, INFUSING FLUIDS WELL. LEFT AV SHUNT NOTED. FLACC 0. NO S/S ACUTE DISTRESS. ABDOMEN SOFT, NONTENDER, NONDISTENDED BOWEL SOUNDS ACTIVE x4 QUADRANTS. OGT NOTED, CONTINUES ON ENTERAL FEEDING. 60 ML OF RESIDUAL NOTED. HOB UP 30 DEGREES. BOYD CATHETER PATENT WITH YELLOW URINE DRAINING TO GRAVITY. PLAN OF CARE DISCUSSED. ISOLATION PRECAUTIONS OBSERVED BY ALL STAFF. SAFETY PRECAUTIONS IN PLACE. FREQUENT VISUAL MONITORING BY ALL STAFF.
--- NOTE | 2020-09-03 21:44 | NUR ---
DUE MEDS GIVEN. PATIENT RESTING COMFORTABLY IN BED. NO S/S ACUTE DISTRESS. FREQUENT VISUAL MONITORING BY ALL STAFF. SAFETY PRECAUTIONS IN PLACE.
--- NOTE | 2020-09-03 22:00 | NUR ---
FAXED COVID RESULTS FOR PATIENT TO [facility] AT FAX # [phone].
[2020-09-03] MEDS: SODIUM BICARBONATE 8.4% 100 MEQ in NACL 0.45% 1,000 ML IV SCH (22:47)
--- NOTE | 2020-09-03 23:06 | NUR ---
PATIENT TURNED AND REPOSITIONED FOR COMFORT. NO S/S ACUTE DISTRESS. FLACC 0. SAFETY PRECAUTIONS IN PLACE.
[2020-09-04] VITALS (17 sets, daily range): BP systolic 103–152; BP diastolic 46–62
[2020-09-04] MEDS: MIDODRINE 5 MG TAB NG SCH ×2 (00:09→05:44)
[2020-09-04] MEDS: INSULIN LISPRO SLIDING SCALE 100 UNITS/ML VIAL SUBQ PRN ×2 (01:04→05:28)
--- NOTE | 2020-09-04 01:25 | NUR ---
PATIENT RESTING COMFORTABLY IN BED. NO S/S ACUTE DISTRESS. FLACC 0. SAFETY PRECAUTIONS IN PLACE. ISOLATION PRECAUTIONS OBSERVED. FREQUENT VISUAL ROUNDS BY ALL STAFF.
--- NOTE | 2020-09-04 03:37 | NUR ---
VAP ORAL CARE RENDERED. PATIENT TURNED AND REPOSITIONED. NO S/S ACUTE DISTRESS. SAFETY PRECAUTIONS IN PLACE. FREQUENT VISUAL ROUNDS BY ALL STAFF.
[2020-09-04] MEDS: PIPERACILLIN/TAZOBACTAM 2.25 GM in DEXTROSE 5% 50 ML IV SCH (04:59)
[2020-09-04] MEDS: BLOOD GLUCOSE MONITORING 1 DEV DEV FS SCH ×2 (05:28)
[2020-09-04 05:46] LABS: BASOPHILS # (AUTO) 0.1 K/uL (0.00-0.22); BASOPHILS % (AUTO) 0.7 % (0.0-2.0); EOSINOPHILS # (AUTO) 0.3 K/uL (0-0.4); EOSINOPHILS % (AUTO) 3.1 % (0.0-4.0); HEMATOCRIT 22.8 % (36-48); HEMOGLOBIN 7.4 g/dL (12.0-16.0); LYMPHOCYTES # (AUTO) 0.5 K/uL (2.5-16.5); LYMPHOCYTES % (AUTO) 4.6 % (20.5-51.1); MEAN CORPUSCULAR HEMOGLOBIN 31 pg (27-31); MEAN CORPUSCULAR HGB CONC 33 g/dL (33-37); MEAN CORPUSCULAR VOLUME 95.1 fL (80-94); MONOCYTES # (AUTO) 0.4 K/uL (0.8-1.0); MONOCYTES % (AUTO) 3.8 % (1.7-9.3); NEUTROPHILS # (AUTO) 9.5 K/uL (1.8-7.7); NEUTROPHILS % (AUTO) 87.8 % (42.2-75.2); PLATELET COUNT (AUTO) 76 K/uL (140-450); RED CELL DISTRIBUTION WIDTH 19.2 % (11.6-13.7); WHITE BLOOD COUNT (AUTO) 10.8 K/uL (4.8-10.8)
--- NOTE | 2020-09-04 05:50 | NUR ---
DUE MEDS GIVEN ORDERED. BLOOD GLUCOSE 380 MG/DL, COVERAGE GIVEN ORDERED. NO S/S ACUTE DISTRESS. FLACC 0. SAFETY PRECAUTIONS IN PLACE. FREQUENT VISUAL ROUNDS BY ALL STAFF.
[2020-09-04 06:08] LABS: HEPATITIS A ANTIBODY IGM Negative (Negative); HEPATITIS B CORE AB TOTAL Negative (Negative); HEPATITIS B SURFACE ANTIBODY Non Reactive (.); HEPATITIS B SURFACE ANTIGEN Negative (Negative)
[2020-09-04 06:20] LABS: ALBUMIN 2.6 g/dL (3.4-5.0); ANION GAP 16.7 (8-16); CARBON DIOXIDE 26.3 mmol/L (21-32); TOTAL BILIRUBIN 1.5 mg/dL (0.0-1.0)
[2020-09-04 06:25] LABS: CREATININE 6.6 mg/dL (0.6-1.3)
--- NOTE | 2020-09-04 07:07 | NUR ---
ENDORSED PATIENT TO AM SHIFT NURSE FOR CONTINUITY OF CARE.
--- NOTE | 2020-09-04 07:20 | NUR ---
RECEIVED PT FROM SAFETY CLOTHING AND EQUIPMENT DEVELOPER RN. PT IS OFF SEDATION BUT IS NON-RESPONSIVE TO STIMULI, LACKING GAG REFLEX. PT IS ETT TO VENT ACVC 30% FIO2, VT 425, R 20, PEEP 5. PT IS SB ON THE MONITOR AT THIS TIME. PT HAS ACCESS AT R FEMORAL TRIPLE LUMEN. PT HAS L FA AV SHUNT FOR HEMODIALYSIS. PT IS ON HEPARIN AT 700 UNITS/HR, NS TKO, AND 1/2 NS WITH SODIUM BICARB 8.4% 100 MEQ RUNNING AT 40 ML/HR. PT HAS OG TUBE IN PLACE WITH NEPRO RUNNING AT 20 ML/HR WITH FWF 130 ML Q4H. BOYD CATHETER AND RECTAL TUBE ARE IN PLACE. WILL CONTINUE TO MONITOR, HOB AT 30 DEG. Addendum: 09/04/20 at 0743 by Cele Sen RN RN PT IS OFF HEPARIN DRIP
[2020-09-04] MEDS ORDERED: KCL 20 MEQ/WATER INJ PREMIX 200 ML IV PRN (08:00)
[2020-09-04] MEDS: DOPamine 400 MG/D5W PREMIX 250 ML IV PRN (08:16)
[2020-09-04] MEDS: carvediloL 6.25 MG TAB PO SCH (08:17)
--- NOTE | 2020-09-04 08:45 | NUR ---
DR. SAINI SEEING PT, NO FURTHER ORDERS AT THIS TIME.
[2020-09-04] MEDS: VIT-B COMP/VIT-C/FOLIC ACID 1 TAB PO SCH (09:35)
[2020-09-04] MEDS: PANTOPRAZOLE 40 MG INJ VIAL IVP SCH (09:35)
--- NOTE | 2020-09-04 09:50 | NUR ---
DR. SHANKS SEEING PT
--- NOTE | 2020-09-04 10:15 | NUR ---
ADMINISTERED MEDS PER ORDER. PT TOLERATED WELL. 140 ML RESIDUAL FROM TUBE FEED. POTASSIUM REPLACED FOR K 3.0. VAP ORAL CARE, CHG BATH PROVIDED. TEMPERATURE 83.1, REHANA HUGGER REPLACED.
--- NOTE | 2020-09-04 10:20 | NUR ---
SPOKE TO SON ACE, FAMILY PLANS TO COME SEE PT AND MAKE DECISION ABOUT POSSIBLE TERMINAL EXTUBATION. AWAITING THEIR ARRIVAL.
--- NOTE | 2020-09-04 11:12 | NUR ---
FAMILY HERE TO SEE PT. INFORMATION MANAGEMENT SPECIALIST MORAIMA AWARE AND WILL BRING FAMILY TO ICU
--- NOTE | 2020-09-04 11:40 | NUR ---
FAMILY TAKING PT BELONGINGS
--- NOTE | 2020-09-04 11:43 | NUR ---
DR. PONCE HERE TO SEE PT
[2020-09-04] MEDS ORDERED: MORPHINE SULFATE 2 MG/ML SYR IVP PRN ×2 (12:25→13:35)
--- NOTE | 2020-09-04 12:29 | NUR ---
CARLOS EDUARDO BELLO SIGNED POLST TO MAKE PT DNR AND COMFORT MEASURES. DR. SHANKS AND KRIS ESQUIVEL. ORDERS IN PLACE FOR MORPHINE FOR COMFORT MEASURES
[2020-09-04] MEDS ORDERED: MORPHINE SULFATE 50 MG in NACL 0.9% 45 ML IV PRN (13:10)
--- NOTE | 2020-09-04 13:55 | NUR ---
PT BEING TRANSFERRED TO TELE BY DEACON CORTES AND HEALTH CARE LEGAL ASSISTANT MORAIMA. REPORT GIVEN TO ASSOCIATE QUALITY ENGINEERDEACON WILKS.
--- NOTE | 2020-09-04 13:55 | NUR ---
RECEIVED REPORT FROM ICU NURSE FELICIA PATIENT COMPLAINS OF ARREST AT HOME AND MISSED HEMODIALYSIS DIAGNOSIS OF CARDIAC ARREST WITH ROSC/ESRD/HYPERKALEMIA, FOR COMFORT MEASURES, IV ON RIGHT FEMUR TRIPLE LUMEN WITHE MORPHINE DRIP AT 1 MG/HR, SKIN INTACT, WITH BOYD CATHETER AND RECTAL TUBE, DISCONTINUED TUBE FEEDING, WITH LEFT FOOT FINGERS AMPUTATION, VITAL SIGNS BP 135/57 AK 52 PER ICU NURSE. PATIENT IS ON CONTACT ISOLATION FOR ESBL URINE.
--- NOTE | 2020-09-04 13:55 | NUR ---
RECEIVED REPORT FROM Iam
--- NOTE | 2020-09-04 14:15 | NUR ---
TRANSFERRED PT TO TELE WITH BVM. THEN EXTUBATED PT AND PLACED ON 2L NC PER RIMMA BARROS.
--- NOTE | 2020-09-04 14:15 | NUR ---
PATIENT ARRIVE AT THE UNIT VIA GURNEY ASSISTED TO ROOM PATIENT ON AMBU BAG,WITH IV ON THE RIGHT FEMORAL TRIPLE LUMEN WITH MORPHINE AT 1MG/HR,UPON EXTUBATION OF THE PATIENT SUCTION WAS DONE AND NO VISIBLE RISE AND FALL OF THE CHEST, UNABLE TO CHECK VITAL SIGNS NO PULSE AND BLOOD PRESSURE. CLEANED THE PATIENT. ON TELEMONITOR PATIENT IS ON AGONAL RHYTHM TX STRIP.
--- NOTE | 2020-09-04 14:25 | NUR ---
PATIENT AT THIS TIME NO PULSE AND BLOOD PRESSURE AND FLAT LINE ON TELEMONITOR.
--- NOTE | 2020-09-04 15:35 | NUR ---
CALL PLACE TO SPOKE TO MEEK [phone], REGARDING MORTUARY.
--- NOTE | 2020-09-04 16:30 | NUR ---
REMOVED ID BANDS, IV , BOYD CATHETER AND RECTAL TUBES, CLEANED THE PATIENT BODY AND PLACE IN A BODY BAG, PT TAGS IN PLACE.
--- NOTE | 2020-09-04 19:20 | NUR ---
PATIENT BODY WAS RELEASED TO [facility] AT THIS TIME.
--- NOTE | 2020-09-04 19:30 | NUR ---
ENDORSED TO NIGHT NURSE.
== END 2020-09-04 19:58 | DRG 870 ==
LOC: MED 21:03 → MIC 22:55 → MTU 09-04 14:50
PROVIDERS: ADMIT Hospitalist; ATTEND Hospitalist
PROC: 5A1955Z Respiratory Ventilation, Greater than 96 Consecutive Hours (ICD-10-PCS; principal; 2020-08-30)
PROC: 0BH17EZ Insertion of Endotracheal Airway into Trachea, Via Natural or Artificial Opening (ICD-10-PCS; 2020-08-30)
PROC: 06HY33Z Insertion of Infusion Device into Lower Vein, Percutaneous Approach (ICD-10-PCS; 2020-08-30)
PROC: B54BZZA Ultrasonography of Right Lower Extremity Veins, Guidance (ICD-10-PCS; 2020-08-30)
PROC: 5A12012 Performance of Cardiac Output, Single, Manual (ICD-10-PCS; 2020-08-30)
PROC: 5A1D70Z Performance of Urinary Filtration, Intermittent, Less than 6 Hours Per Day (ICD-10-PCS; 2020-08-31)
PROC: 5A1D70Z Performance of Urinary Filtration, Intermittent, Less than 6 Hours Per Day (ICD-10-PCS; 2020-09-02)
PROC: 30233N1 Transfusion of Nonautologous Red Blood Cells into Peripheral Vein, Percutaneous Approach (ICD-10-PCS; 2020-09-03)
DX: A41.9 Sepsis, unspecified organism (principal); J96.00 Acute respiratory failure, unspecified whether with hypoxia or hypercapnia; N18.6 End stage renal disease; I21.4 Non-ST elevation (NSTEMI) myocardial infarction; J69.0 Pneumonitis due to inhalation of food and vomit; I12.0 Hypertensive chronic kidney disease with stage 5 chronic kidney disease or end stage renal disease; I47.2 Ventricular tachycardia; G93.1 Anoxic brain damage, not elsewhere classified; E11.22 Type 2 diabetes mellitus with diabetic chronic kidney disease; E87.5 Hyperkalemia; Z20.822 Contact with and (suspected) exposure to COVID-19; R13.10 Dysphagia, unspecified; I46.9 Cardiac arrest, cause unspecified; Z99.2 Dependence on renal dialysis; Z85.43 Personal history of malignant neoplasm of ovary
CPT/HCPCS: 36415; 36600; 70450; 71045; 80048; 80053; 80202; 80305; 81001; 82550; 82553; 82803; 83605; 83735; 83880; 84100; 84443; 84484; 85025; 85379; 85384; 85610; 85730; 86704; 86706; 86708; 86709; 86803; 86886; 86900; 86901; 86920; 87040; 87070; 87081; 87086; 87205; 87340; 89220; 92950; 93005; 94002; 94003; 96374; 99291; 99292; C9113; G0482; J0171; J0696; J1265; J1644; J1815; J2270; J2543; J2704; J3370; J3480; J3490; J7030; J7060; P9016; P9046